=== PATIENT | female | born 1965 | race Caucasian/White ===

== ENCOUNTER 2022-06-18 11:15 | Outpatient (CLI) | payer SELFPAY | END 2022-06-18 11:16 | disposition home or self-care (01) | LOC: NFLDREF 11:15 | PROVIDERS: Visit Provider Obstetrics & Gynecology | DX: Z01.419 Encounter for gynecological examination (general) (routine) without abnormal findings (principal); Z11.51 Encounter for screening for human papillomavirus (HPV); N94.10 Unspecified dyspareunia | CPT/HCPCS: 87624; 88175 ==

== ENCOUNTER 2022-10-05 09:13 | Outpatient (CLI) | payer BC, SELFPAY ==
--- NOTE | 2022-10-05 09:15 | CRLHL7_ITS ---
For Patients: As a result of the Century Cures Act, medical imaging exams and procedure reports are released immediately into your electronic medical record. You may view this report before your referring provider. If you have questions, please contact your health care provider. BILATERAL SCREENING MAMMOGRAM WITH COMPUTER-AIDED DETECTION AND TOMOSYNTHESIS TECHNIQUE: CC and MLO views were obtained. These mammographic images have been obtained using full-field digital technique. These mammographic images were interpreted with the benefit of computer-aided detection. Breast Tomosynthesis was used in this interpretation. COMPARISON FILM: 12/15/18, 08/14/13, 10/22/08. FINDINGS: The breasts are heterogeneously dense, which may obscure small masses IMPRESSION: There is no radiographic evidence for malignancy. ASSESSMENT: BI-RADS Category 2: Benign RECOMMENDATION: Routine screening mammogram in 1 year. A lay language report of this examination will be provided to the patient. Norberto Silverman M.D. Diagnostic Radiologist [email or web address] ANA CRISTINA/Dictated by: Norberto Silverman MD @ 10/05/2022 10:33:00 AM (Electronically Signed)
== END 2022-10-05 09:14 | disposition home or self-care (01) ==
LOC: MAMMO 09:14
PROVIDERS: Visit Provider Obstetrics & Gynecology
DX: Z12.31 Encounter for screening mammogram for malignant neoplasm of breast (principal); R92.2 Inconclusive mammogram
CPT/HCPCS: 77063; 77067

== ENCOUNTER 2024-03-31 10:45 | Outpatient (CLI) | payer BC, SELFPAY ==
--- NOTE | 2024-03-31 10:45 | CRLHL7_ITS ---
For Patients: As a result of the Century Cures Act, medical imaging exams and procedure reports are released immediately into your electronic medical record. You may view this report before your referring provider. If you have questions, please contact your health care provider. BILATERAL SCREENING MAMMOGRAM WITH COMPUTER-AIDED DETECTION AND TOMOSYNTHESIS TECHNIQUE: CC and MLO views were obtained. These mammographic images have been obtained using full-field digital technique. These mammographic images were interpreted with the benefit of computer-aided detection. Breast tomosynthesis was used in this interpretation. COMPARISON FILM: 10/05/22, 12/15/18, 11/02/15. FINDINGS: The breasts are heterogeneously dense, which may obscure small masses. IMPRESSION: There is no radiographic evidence for malignancy. ASSESSMENT: BI-RADS Category 2: Benign RECOMMENDATION: Routine screening mammogram in 1 year. A lay language report of this examination will be provided to the patient. NORBERTO BLACK M.D. Diagnostic Radiologist [email or web address] Transcribed: 11:[address]/Dictated by: Norberto Black MD @ 04/07/2024 9:12:00 AM (Electronically Signed)
--- OUTSIDE RECORDS SUMMARY | 2024-03-31 10:47 | XMS_ITS | Clinical Summary ---
Author Organization [facility] Address [address] [place] [address] Care Team Providers Care Screw Supervisor Name Role Phone Unavailable Primary Care Provider Unavailabl e Source Comments Patient records contain information from all sites at [facility]. For routine questions regarding patient records, call [phone] during business hours, M-F 8:00 AM - 5:00 PM Central Time. Record requests for emergency care only can be directed to [phone] at any time.[facility] Allergies Active Allergy Reactions Criticality Noted Date Comments Animal Dander Other (see comments) 11/27/2023 Docosahexaenoic Acid-Epa Anaphylaxis High 09/20/2006 Fish Oil Other (see comments) High 05/17/2005 Fresh water fish Flavoring Agent Other (see comments) 09/20/2006 Other reaction(s): Runny Nose Fruit Flavor Other (see comments) 09/20/2006 Penicillins Anaphylaxis,Rash High 11/04/2002 Sulfa (Sulfonamide Antibiotics) Rash High 09/20/2006 Tree Nut Edema, suggestive of allergic reaction, i.e., lip, tongue, or throat swelling,Rash High 11/27/2023 Medications Medication Sig Dispensed Refills Start Date End Date Status vit D3-vit K2-ca fructoborate 20 mcg-180 mcg- 216 mg tablet Active dqnsbovgrj-whpzltm-wqtg icillin 20 mg-500 mg- 500 mg (40) combo pack Ac tive levothyroxine (SYNTHROID, LEVOTHROID) 25 mcg tablet Take 25 mcg by mouth every morning before breakfast. 09/23/2023 Active Lact no.21-Bifido no.7-inulin (Fortify Probiotic 50 Plus) 30 billion cell-50 mg capsule,delayed release(DR/EC) Active guaiFENesin (Mucinex) 1,200 mg tablet extended release 12hr Act benjy fexofenadine-pseudoephe drine (Sandy-D 12 Hour) 60-120 mg per 12 hr tablet Active aspirin 81 mg capsule Act benjy balb-T1-upnimb-B6-Zn-Cu -sejal 250 mg-400 unit -40 mg-5 mg tablet Active psyllium husk 3.4 gram/5.4 gram powder Take by mouth. Active Active Problems Problem Noted Date Diagnosed Date Stroke 12/19/2023 Social History Tobacco Use Types Packs/Day Years Used Date Smoking Tobacco: Never Smokeless Tobacco: Never Tobacco Cessation:Counseling Given: Not Answered Alcohol Use Standard Drinks/Week Comments Yes 0 (1 standard drink = 0.6 oz pur e alcohol) Socially [facility] Instamourities Answer Date Recorded In the past 12 months has th e [employer], gas, oil, or water Schedulicity threatened to shut off services in your home? No 12/02/2023 Exercise Vital Sign Answer Date Recorde d On average, how many days pe r week do you engage in moderate to strenuous exercise (like a brisk walk)? 2 days 12/02/2023 On average, how many minutes do you engage in exercise at this level? 60 min 12/02/2023 Hunger Vital Sign Answer Date Recorded Within the past 12 months, y ou worried that your food would run out before you got the money to buy more. Never true 12/02/19 24 Within the past 12 months, t he food you bought just didn't last and you didn't have money to get more. Never true 12/02/2023 PRAPARE - Transportation Answer Date Re corded In the past 12 months, has l ack of transportation kept you from medical appointments or from getting medications? No 11/08 In the past 12 months, has l ack of transportation kept you from meetings, work, or from getting things needed for daily living? No 12/02/2023 Nutrition Answer Date Recorded Nutrition: EVOO Fat Source Unknown 12/02 On average, how many serving s of fruits and vegetables do you eat per day (serving size is equal to 1 cup or approximately the size of a tennis ball)? 3-5 12/02/2023 Dental Answer Date Recorded Dental: Regular Dentist Yes 12/02/19 Employment Answer Date Recorded Employment status Employed and actively working without restrictions 12/02/2023 Housing Stability Answer Date Recorded What is your living situation today? I have a [facility] place to live 12/02/2023 Sex and Gender Information Value Date Recorded Sex Assigned at Female 12/02/2023 10:09 AM RETAIL TEAM LEADER Gender Identity Female 12/02/2023 10:09 AM RETAIL TEAM LEADER Sexual Orientation Straight 12/02/2023 10 :09 AM RETAIL TEAM LEADER Last Filed Vital Signs Vital Sign Reading Time Taken Comments Blood Pressure 122/83 12/19/2023 2:28 PM CDT Pulse 53 12/19/2023 2:43 PM CDT Temperature 36.5 ??C (97.7 ??F) 12/19/2023 2:24 PM CD T Respiratory Rate 17 12/19/2023 2:43 PM CDT Oxygen Saturation 99% 12/19/2023 2:43 PM CDT Inhaled Oxygen Concentration - - Weight 67.5 kg (148 lb 13 oz) 12/02/2023 2:43 PM RETAIL TEAM LEADER Height 167 cm (5' 5.75) 12/02/2023 2:43 PM RETAIL TEAM LEADER Body Mass Index 24.2 12/02/2023 2:43 PM RETAIL TEAM LEADER Plan of Treatment Health Maintenance Due Date Last Done Comments CT Colonography 1965 Cologuard 1965 FIT 1965 HIV Screening 1965 Hepatitis C Screening 1965 Mammogram 1965 COVID-19 Vaccine ( season) 2023 08/18/2021, 11/21/2020, 10/31/2020 Depression Screening (Annual PHQ-2) 10/07/2023 Office Visit for Blood Pressure Check / Re-check 03/01/2024 12/02/2023 Lipid (Cholesterol) Screening 11/27/2024 11/27/2023, 10/07/2021, 01/16/2021 Thyroid Stimulating Hormone (TSH) test for thyroid function 01/27/2025 01/28/2024, 11/27/2023, 07/24/2023 Cervical Cancer Screening 08/20/2025 08/20/2022 Fasting Glucose for Diabetes Screening 01/27/2027 01/28/2024, 07/24/2023, 10/06/2021, Additional history exists DTaP,Tdap,and Td Vaccines (3 - Td or Tdap) 04/12/2028 04/12/2018, 04/23/2008 Colonoscopy 12/18/2033 12/19/2023, 12/19/2023 Colorectal Cancer Screening 12/18/2033 Influenza Vaccine Completed 07/03/2023, , 07/07/2022, Additional history exists Zoster Vaccines Completed 11/08/2023, 07/03/2023 Hepatitis B Vaccines Aged Out No long er eligible based on patient's age to complete this topic Pneumococcal vaccine (0-64 years) Aged Out No longer eligible based on patient's age to complete this topic Medical Devices Implanted Type Area Elevator Operator Device Identifier Shelf Expiration Date Model / Serial / Lot Clp Rsp [facility] Endo 235 - [id number] Implanted:Qt y: 1 on 12/19/2023 by Karthikeyan Wright M.D. at [facility] Hardware e.g. pins/screws /rods N/A: Ascending Colon [employer] [id number] 05/13/2026 [id number] / / [id number] Procedures Procedure Name Priority Date/Time Associated Diagnosis Comments EXTI COMPREHENSIVE METABOLIC PANEL, S/P Routine 01/28/2024 8:36 AM CDT EXTI TSH W/REFLEX TO FT4 Routine 01/28/2024 8:36 AM CDT COLONOSCOPY Routine 12/19/2023 1:11 PM CDT Screening Colon Cancer Average Risk EXTI LIPID PANEL REFLEX TO DIRECT LDL Routine 11/27/2023 8:46 AM RETAIL TEAM LEADER from Last 3 Months or Most Recently Relevant to Health Maintenance Results * Colonoscopy (12/19/2023 1:11 PM CDT) 12/19/2023 1:11 PM CDT Impressions [facility] [employer] - 12/19/2023 2:27 PM CDT Post-op Diagnoses: ? - Two 3 to 4 mm polyps in the cecum, removed with a cold snare. Resected ? and retrieved. ? - One 7 mm polyp in the ascending colon, removed with a cold snare. ? Resected and retrieved. Clip was placed. ? - External hemorrhoids. ? - The examined portion of the ileum was normal. Narrative [facility] - 12/19/2023 2:27 PM CDT Gonda 9 GI GI Patient Name: Anai Guzman Date of : 1965 Age: 58 Procedure Date: 12/19/2023 Procedure: ? Colonoscopy Providers: ? Karthikeyan Wright MD Referring Provider: ?Suzette Spear MD Pre-op Diagnoses: ?Screening for malignant neoplasm in the colon Recommendation: ? - PATHOLOGY/MICROBIOLOGY FOLLOW-UP: The ordering provider is responsible ? for reviewing results from specimens obtained during this endoscopic ? procedure and communicating the findings to the patient. If guidance is ? needed for interpreting endoscopic findings or pathology results, please ? consider a gastroenterology e-consult. ? - Follow up recommendations for patients with polyps identified during ? colonoscopy are impacted by several factors including polyp ? characteristics (size, number and histology), adequacy of colonic ? preparation and pertinent family history. For [facility] providers, ? detailed recommendations are available as an AskMayoExpert Care Process ? Model: <[email or web address] ? There may be some circumstances, specifically those patients with a ? personal or family history of significant colorectal neoplasms where ? these guidelines may not apply. Consider consultation in ? Gastroenterology for all other polyp findings or for patients who are ? not at average risk. ? - Return to referring physician. Findings: ? The perianal and digital rectal examinations were normal. ? Retroflexion in the right colon was performed. ? Two sessile polyps were found in the cecum. The polyps were 3 to 4 mm in ? size. These polyps were removed with a cold snare. Resection and ? retrieval were complete. ? A 7 mm polyp was found in the ascending colon. The polyp was sessile. ? The polyp was removed with a cold snare. Resection and retrieval were ? complete. To prevent bleeding after the polypectomy, one hemostatic clip ? was successfully placed. There was no bleeding at the end of the ? procedure. ? External hemorrhoids were found during retroflexion. The hemorrhoids ? were small. ? The terminal ileum appeared normal. Procedural Details: ? The patient was seen, evaluated, history reviewed, airway and heart-lung ? exams were performed by licensed provider and were satisfactory for ? planned level of sedation care. ? The risks, benefits and alternatives for the procedure and sedation were ? discussed and informed consent was obtained. A procedural pause was ? conducted in the presence of assisting personnel to verify the correct ? patient identity and procedure to be performed. Throughout the ? procedure, the patient's blood pressure, pulse, and oxygen saturations ? were monitored continuously. The Colonoscope was introduced under direct ? vision through the anus and advanced to the terminal ileum, with ? identification of the appendiceal orifice and IC valve. The colonoscopy ? was performed without difficulty. The patient tolerated the procedure ? well. The quality of the bowel preparation was evaluated using the BBPS ? ([place] Bowel Preparation Scale) with scores of: Right Colon = 3, ? Transverse Colon = 3 and Left Colon = 3 (entire mucosa seen well with no ? residual staining, small fragments of stool or opaque liquid). The total ? BBPS score equals 9. Estimated Blood Loss: ?Estimated blood loss was minimal. Complications: ? No immediate complications. Sedation: ? Moderate (conscious) sedation was administered by the nurse and ? supervised by the endoscopist. The following parameters were monitored: ? oxygen saturation, heart rate, blood pressure, and response to care. ? Total physician intraservice time was 35 minutes. Attending Participation: I personally performed the entire procedure. Karthikeyan Wright MD 12/19/2023 2:27:09 PM This report has been signed electronically. Number of Addenda: 0 Suzette Spear M.D. GI PROCEDURE ORDERAB LES [facility] NA from Last 3 Months or Most Recently Relevant to Health Maintenance
--- OUTSIDE RECORDS SUMMARY | 2024-03-31 10:47 | XMS_ITS | Encounter Summary ---
Author Organization [facility] Address [address] [place] [address] Care Team Providers Care Escalator Mechanic Name Role Phone Unavailable Primary Care Provider Unavailabl e Reason for Visit * Outpatient (Routine) - Closed Specialty Diagnoses / Procedures Referred By Contact Referred To Contact Gastroenterology and Hepatology Suzette Spear M.D. [address] [place] [phone] [facility] Referral ID Status Reason Start Date Expiration Date Visits Re quested Visits Authorized [id number] Closed 12/02/2023 06/02/2025 1 1 Encounter Details Date Type Department Care Team (Latest Contact Info) Description 12/24/2023 1:20 PM CDT Virtual Visit Division of Gastroenterology in [place], [place] [address] [place] [phone] Jamila Hagen, SAJI, C.N.P., M.S. [address] [place] [phone] Gastroesophageal Reflux Disease Without Esophagitis (Primary Dx); Screening Colon Cancer Average Risk Social History Tobacco Use Types Packs/Day Years Used Date Smoking Tobacco: Never Smokeless Tobacco: Never Alcohol Use Standard Drinks/Week Comments Yes 0 (1 standard drink = 0.6 oz pur e alcohol) Socially [facility] Utilities Answer Date Recorded In the past 12 months has th e electric, gas, oil, or water company threatened to shut off services in your [...] money to buy more. Never true 12/02/19 Within the past 12 months, t he [...] your living situation today? I have a [facility] place to live 12/02/2023 Sex and Gender Information Value Date Recorded Sex Assigned at Female 12/02/2023 10:09 AM CUSTOMER ACCOUNTS ADVISOR Gender Identity Female 12/02/2023 10:09 AM CUSTOMER ACCOUNTS ADVISOR Sexual Orientation Straight 12/02/2023 10 :09 AM CUSTOMER ACCOUNTS ADVISOR documented as of this encounter Progress Notes * Jamila Hagen, SAJI, C.N.P., M.S. - 12/24/2023 1:20 PM CDT Phone visit. Patient of Dr. Spear whom I was asked to follow up by phone to discuss the results. HISTORY OF PRESENT ILLNESS Anai Guzman is a 58-year-old female seen by Dr. Spear on 12/02/2023 for heartburn and reflux symptoms as well as surveillance colon cancer. An upper endoscopy and colonoscopy were performed. ASSESSMENT / PLAN #1 Gastroesophageal reflux #2 A 2-cm hiatal hernia I reviewed this with her. Hiatal hernia does not need surgical repair. Continue with PPI regimen that controls her heartburn symptoms as it currently does in addition to lifestyle modifications. #3 Surveillance colon cancer Polyps removed with pathology showing tubular adenoma with low dysplasia as well as sessile serrated adenoma. Reviewing the Ask [place] Expert guidelines, we recommend she repeat colonoscopy in 3-5 years. No followup needed in the Esophagus Clinic. Billing: I spent 5 minutes with the patient/and family on the phone; reviewing and interpreting test results; discussing and coordinating care. documented in this encounter Plan of Treatment Not on file documented as of this encounter Visit Diagnoses Diagnosis Gastroesophageal Reflux Disease Without Esophagitis- Primary Screening Colon Cancer Average Risk documented in this encounter
--- OUTSIDE RECORDS SUMMARY | 2024-03-31 10:47 | XMS_ITS | Referral Summary ---
Author Organization [facility] Address [address] [place] [id number] Care Team Providers Care Software Configuration Analyst Name Role Phone Unavailable Primary Care Provider Unavailabl e Source Comments Patient records contain information from all sites at [facility]. For routine questions regarding patient records, call [phone] during business hours, M-F 8:00 AM - 5:00 PM Central Time. Record requests for emergency care only can be directed to [phone] at any time.[facility] Allergies Active Allergy Reactions Criticality Noted Date [...] 20 mcg-180 mcg- 216 mg tablet Active ucqtpcviwg-ddopgbb-jraa icillin 20 mg-500 mg- 500 mg (40) [...] Active aspirin 81 mg capsule Act benjy hbyu-H6-bbvfem-B6-Zn-Cu -sejal 250 mg-400 unit -40 mg-5 mg [...] = 0.6 oz pur e alcohol) Socially [facility] CPM Braxisities Answer Date Recorded In the past 12 months has th e [employer], gas, oil, or water [employer] threatened to shut off services in your [...] your living situation today? [facility] 12/02/2023 Sex and Gender Information Value Date Recorded Sex Assigned at Female 12/02/2023 10:09 AM FOOD AND NUTRITION SUPERVISOR Gender Identity Female 12/02/2023 10:09 AM FOOD AND NUTRITION SUPERVISOR Sexual Orientation Straight 12/02/2023 10 :09 AM FOOD AND NUTRITION SUPERVISOR Last Filed Vital Signs Vital Sign Reading Time Taken Comments Blood Pressure 122/83 12/19/2023 2:28 PM CDT Pulse 53 12/19/2023 2:43 PM CDT Temperature 36.5 ??C (97.7 ??F) 12/19/2023 2:24 PM CD T Respiratory Rate 17 12/19/2023 2:43 PM CDT Oxygen Saturation 99% 12/19/2023 2:43 PM CDT Inhaled Oxygen Concentration - - Weight 67.5 kg (148 lb 13 oz) 12/02/2023 2:43 PM FOOD AND NUTRITION SUPERVISOR Height 167 cm (5' 5.75) 12/02/2023 2:43 PM FOOD AND NUTRITION SUPERVISOR Body Mass Index 24.2 12/02/2023 2:43 PM FOOD AND NUTRITION SUPERVISOR Plan of Treatment Not on file Medical Devices Implanted Type Area Pearl Glue Drier Device Identifier Shelf Expiration Date Model / Serial / Lot Clp Rsp [facility] Endo 235 - [id number] Implanted:Qt y: 1 on 12/19/2023 by Karthikeyan Wright M.D. at [facility] Hardware e.g. pins/screws /rods N/A: Ascending Colon [employer] [id number] 05/13/2026 [id number] / / [id number] Procedures Procedure Name Priority Date/Time Associated Diagnosis Comments EXTI COMPREHENSIVE METABOLIC PANEL, S/P Routine 01/28/2024 8:36 AM CDT EXTI TSH W/REFLEX TO FT4 Routine 01/28/2024 8:36 AM CDT COLONOSCOPY Routine 12/19/2023 1:11 PM CDT Screening Colon Cancer Average Risk EXTI LIPID PANEL REFLEX TO DIRECT LDL Routine 11/27/2023 8:46 AM FOOD AND NUTRITION SUPERVISOR from Last 3 Months or Most Recently Relevant to Health Maintenance Results * Colonoscopy (12/19/2023 1:11 PM CDT) 12/19/2023 1:11 PM CDT Impressions [facility] - 12/19/2023 2:27 PM CDT Post-op Diagnoses: [...] portion of the ileum was normal. Narrative [facility] - 12/19/2023 2:27 PM CDT Gonda 9 [...] ? preparation and pertinent family history. For [facility] providers, ? detailed recommendations are available as an AskMayoExpert Care Process ? Model: <[email or web address] ? There may be some circumstances, [...] preparation was evaluated using the BBPS ? ([place] Bowel Preparation Scale) with scores of: Right [...] Suzette Spear M.D. GI PROCEDURE ORDERAB LES [facility] NA from Last 3 Months or Most Recently Relevant to Health Maintenance
--- OUTSIDE RECORDS SUMMARY | 2024-03-31 10:47 | XMS_ITS ---
Author Organization [facility] Address [address] [place] [address] Care Team Providers Care Data Warehouse Consultant Name Role Phone Unavailable Unavailable Unavailable Surgery Details Not on file Complications Check Surgery Details section. Procedure Estimated Blood Loss Check Surgery Details section. Procedure Findings Check Surgery Details section. Procedure Specimens Taken Check Surgery Details section.
--- OUTSIDE RECORDS SUMMARY | 2024-03-31 10:48 | XMS_ITS | Encounter Summary ---
Author Organization [facility] Address [address] [place] [address] Care Team Providers Care Egg Breaker Name Role Phone Laura Quach PA-C Unavailable [phone] Errol Venegas MD Unavailable Errol Venegas MD Primary Care Provider Anthony Toro MD Unavailable Reason for Visit * Reason Comments Medication Refill Encounter Details Date Type Department Care Team (Late st Contact Info) Description [facility] [address] [place] [address] Lianne Ledezma MD [address] [place] [address] Medication Refill Social History Tobacco Use Types Packs/Day Years Used Date Smoking Tobacco: Never Passive Smoke Exposure: Never Smokeless Tobacco: Never Alcohol Use Standard Drinks/Week Comments No 0 (1 standard drink = 0.6 oz pur e alcohol) Social Connection and Isolation Panel [NHANES] A nswer Date Recorded Frequency of Communication with Friends and Fami ly Not on file 01/28/2024 How often do you get together with friends or re latives? Twice a week 01/28/2024 Attends [employer] Services Not on file 01/27 Active Member of Clubs or Organizations Not on f ile 01/28/2024 Attends Club or Organization Meetings Not on matthew e 01/28/2024 Marital Status Not on file 01/28/2024 PHQ-2 Answer Date Recorded PHQ-2 Score 0 01/28/2024 [facility]ational Stress Questionnaire Answer Date Recorded Do you feel stress - tense, restless, nervous, or anxious, or unable to sleep at night because your mind is troubled all the time - these days? Not at all 01/28/2024 Exercise Vital Sign Answer Date Recorde d On average, how many days pe r week do you engage in moderate to strenuous exercise (like a brisk walk)? 3 days Minutes of Exercise per Session Not on file 01/28/2024 Adolescent Education Answer Date Record ed Getting School Help Needed Not on file 07/14 Food Insecurity Answer Date Recorded Within the past 12 months, d id you worry that your food would run out before you got money to buy more? No 01/28/2024 Within the past 12 months, d id the food you bought just not last and you didn? t have money to get more? No 01/28/2024 Housing Stability Answer Date Recorded Do you have housing? (Alex g is defined as stable permanent housing and does not include staying ouside in a car, in a tent, in an abandoned building, in an overnight assisted, or couch-surfing.) Yes 01/28/2024 Are you worried about losing your housing? No 01/28/2024 Financial Resource Strain Answer Date R ecorded Within the past 12 months, h ave you or your family members you live with been unable to get utilities (heat, electricity) when it was really needed? No 01/28/2024 Transportation Needs Answer Date Record ed Within the past 12 months, h as lack of transportation kept you from medical appointments, getting your medicines, non-medical meetings or appointments, work, or from getting things that you need? No 01/28/2024 Interpersonal Safety Answer Date Record ed Do you feel physically and e motionally safe where you currently live? Yes 01/28/2024 Within the past 12 months, h ave you been hit, slapped, kicked or otherwise physically hurt by someone? No 01/28/2024 Within the past 12 months, h ave you been humiliated or emotionally abused in other ways by your partner or ex-partner? No 01/28/2024 Sex and Gender Information Value Date Recorded Sex Assigned at Female 08/18/2021 8:16 PM FUEL VERIFICATION TECHNICIAN Gender Identity Female 08/18/2021 8:16 PM FUEL VERIFICATION TECHNICIAN Sexual Orientation Straight 08/18/2021 8: 16 PM FUEL VERIFICATION TECHNICIAN documented as of this encounter Plan of Treatment Upcoming Encounters Date Type Department Care Team (Late st Contact Info) Description 04/02/2024 2:10 PM CDT Office Visit [facility] [address] [phone] Errol Venegas MD [address] [place], [place] [address] Anthony Toro MD [address] [place] [phone] 04/30/2024 PRE VISIT [facility] [address] [phone] Anthony Toro MD [address] [place] [phone] Previsit 01/12/2025 8:00 AM CDT Office Visit [facility] [address] [place] [address] Errol Venegas MD [address] [place], [place] [id number] documented as of this encounter Visit Diagnoses Diagnosis Cerebrovascular accident (CVA) due to other mechanism (H) Gastroesophageal reflux disease without esophagitis Esophageal reflux Hiatal hernia Diaphragmatic hernia without mention of obstruction or gangrene documented in this encounter Care Teams Egg Breaker Relationship Specialty Start Date End Date Errol Venegas MD [address] [place] [address] PCP - General Internal Medicine 09/23/23 Laura Quach PA-C [address] [facility] [place] [address] Physician Pulper 01/10/22 Errol Venegas MD [address] [place] [address] Assigned PCP 08/10/23 Anthony Toro MD [address] [place] [address] 4 [place] [phone] Otolaryngology 01/09/24 documented as of this encounter
--- OUTSIDE RECORDS SUMMARY | 2024-03-31 10:48 | XMS_ITS | Encounter Summary ---
Author Organization [facility] Address [address] [place] [address] Care Team Providers Care Biofuels Processing Technician Name Role Phone Laura Quach PA-C Unavailable Errol Venegas MD Unavailable Errol Venegas MD Primary Care Provider Anthony Toro MD Unavailable Reason for Visit * Diagnostic Imaging Dexa (Routine) - Pending Review Specialty Diagnoses / Procedures Referred By Nate contreras Referred To Contact Radiology. Diagnoses Menopause Procedures DX Bone Density Errlo Venegas MD [facility] [place] [address] Referral ID Status Reason Start Date Expiration Date V isits Requested Visits Authorized [id number] Pending Review 01/28/2024 01/27/2025 1 1 Encounter Details Date Type Department Care Team (Late st Contact Info) Description 03/26/2024 8:00 AM CDT Ancillary Procedure [address] [place] [address] Errol Venegas MD [address] [place], [place] [address] [place] [address] Menopause Social History Tobacco Use Types Packs/Day Years [...] re latives? Twice a week 01/28/2024 Attends [employer] Services Not on file 01/27 Active Member of Clubs or Organizations Not on f ile 01/28/2024 Attends Club or Organization Meetings Not on matthew e 01/28/2024 Marital Status Not on file 01/28/2024 PHQ-2 Answer Date Recorded PHQ-2 Score 0 01/28/2024 [facility] - Occupational Stress Questionnaire Answer [...] Date Recorded Do you have housing? (Alex turk is defined as stable permanent housing and does not include staying ouside in a car, in a tent, in an abandoned building, in an overnight correction, or couch-surfing.) Yes 01/28/2024 Are you worried [...] Sex Assigned at Female 08/18/2021 8:16 PM BULLDOZER PRESS OPERATOR Gender Identity Female 08/18/2021 8:16 PM BULLDOZER PRESS OPERATOR Sexual Orientation Straight 08/18/2021 8: 16 PM BULLDOZER PRESS OPERATOR documented as of this encounter Plan of Treatment Upcoming Encounters Date Type Department Care Team (Late st Contact Info) Description 04/02/2024 2:10 PM CDT Office Visit [facility] [address] [phone] Errol Venegas MD [address] [place], [place] [address] Anthony Toro MD [address] [place] [phone] 04/30/2024 PRE VISIT [facility] [address] [phone] Anthony Toro MD [address] [place] [phone] Previsit 01/12/2025 8:00 AM CDT Office Visit [facility] [address] [place] [phone] Errol Venegas MD [address] [place] [address] documented as of this encounter Procedures Procedure Name Priority Date/Time Associated Diagnosis Comments DX AXIAL HIPS/SPINE Routine 03/26/2024 7 :58 AM CDT Menopause documented in this encounter Results * DX AXIAL HIPS/SPINE (03/26/2024 7:58 AM CDT) Anatomical Region Laterality Modality Dexa Bone Mineral Den sity 03/26/2024 7:58 AM CDT Impressions 03/26/2024 10:15 AM CDT IMPRESSION: Low bone density (OSTEOPENIA). T-score meets the WHO criteria for low bone density (osteopenia) at one or more measured sites. The risk of osteoporotic fracture increases approximately two-fold for each standard deviation decrease in T-score. Narrative 03/26/2024 10:15 AM CDT EXAM: DX AXIAL HIPS/SPINE LOCATION: [facility] DATE: 03/26/2024 INDICATION: Menopause. DEMOGRAPHICS: Age- 58 years. Gender- Female. COMPARISON: No prior studies available on the current scanner. TECHNIQUE: Dual-energy x-ray absorptiometry (DXA) performed with routine technique. FINDINGS: DXA RESULTS -Lumbar Spine: L1-L4: BMD: 0.979 g/cm2. T-score: -1.7. Z-score: -0.5. -RIGHT Hip Total: BMD: 0.980 g/cm2. T-score: -0.2. Z-score: 0.7. -RIGHT Hip Femoral neck: BMD: 0.919 g/cm2. T-score: -0.9. Z-score: 0.4. -LEFT Hip Total: BMD: 0.991 g/cm2. T-score: -0.1. Z-score: 0.8. -LEFT Hip Femoral neck: BMD: 0.936 g/cm2. T-score: -0.7. Z-score: 0.5. WHO T-SCORE CRITERIA -Normal: T-score at or above -1 SD -Osteopenia: T-score between -1 and -2.5 SD -Osteoporosis: T-score at or below -2.5 SD The World Health Organization (WHO) criteria is applicable to perimenopausal females, postmenopausal females, and men aged 50 years or older. FRACTURE RISK -FRAX Results: The 10 year probability of major osteoporotic fracture is 7.1%, and of hip fracture is 0.4%, based on right femoral neck BMD. RECOMMENDATIONS Consider treatment if major osteoporotic fracture score is greater than or equal to 20%, or if the hip fracture score is greater than or equal to 3%. Procedure Note Ahmet Johnson MD - 03/26/2024 EXAM: DX AXIAL HIPS/SPINE LOCATION: [facility] DATE: 03/26/2024 INDICATION: Menopause. DEMOGRAPHICS: Age- 58 years. Gender- Female. COMPARISON: No prior studies available on the current scanner. TECHNIQUE: Dual-energy x-ray absorptiometry (DXA) performed with routinetechnique. FINDINGS: DXA RESULTS -Lumbar Spine: L1-L4: BMD: 0.979 g/cm2. T-score: -1.7. Z-score: -0.5. -RIGHT Hip Total: BMD: 0.980 g/cm2. T-score: -0.2. Z-score: 0.7. -RIGHT Hip Femoral neck: BMD: 0.919 g/cm2. T-score: -0.9. Z-score: 0.4. -LEFT Hip Total: BMD: 0.991 g/cm2. T-score: -0.1. Z-score: 0.8. -LEFT Hip Femoral neck: BMD: 0.936 g/cm2. T-score: -0.7. Z-score: 0.5. WHO T-SCORE CRITERIA -Normal: T-score at or above -1 SD -Osteopenia: T-score between -1 and -2.5 SD -Osteoporosis: T-score at or below -2.5 SD The World Health Organization (WHO) criteria is applicable toperimenopausal females, postmenopausal females, and men aged 50 years orolder. FRACTURE RISK -FRAX Results: The 10 year probability of major osteoporotic fracture is7.1%, and of hip fracture is 0.4%, based on right femoral neck BMD. RECOMMENDATIONS Consider treatment if major osteoporotic fracture score is greater than orequal to 20%, or if the hip fracture score is greater than or equal to3%. IMPRESSION: Low bone density (OSTEOPENIA). T-score meets the WHO criteriafor low bone density (osteopenia) at one or more measured sites. The riskof osteoporotic fracture increases approximately two-fold for eachstandard deviation decrease in T-score. Errol Venegas MD IMG DEXA ORDERABLES documented in this encounter Visit Diagnoses Diagnosis Menopause Symptomatic menopausal or female climacteric states documented in this encounter Care Teams Biofuels Processing Technician Relationship Specialty Start Date End Date Errol Venegas MD [address] [place] [address] PCP - General Internal Medicine 09/23/23 Laura Quach PA-C [address] [place], [place] [address] Physician Rfid Manager 01/10/22 Errol Venegas MD [address] [place] [address] Assigned PCP 08/10/23 Anthony Toro MD [address], [place] [address] [place] [phone] Otolaryngology 01/09/24 documented as of this encounter
--- OUTSIDE RECORDS SUMMARY | 2024-03-31 10:48 | XMS_ITS | Encounter Summary ---
Author Organization [facility] Address [address] [place] [address] Care Team Providers Care Criminal Researcher Name Role Phone Laura Quach PA-C Unavailable [phone] Errol Venegas MD Unavailable Errol Venegas MD Primary Care Provider [phone] Anthony Toro MD Unavailable Reason for Visit * Reason Comments Medication Refill Encounter Details Date Type Department Care Team (Late st Contact Info) Description 03/15/[address] [place] [address] [place] [address] Errol Venegas MD [address] [place] [address] Medication Refill Social History Tobacco [...] re latives? Twice a week 01/28/2024 Attends Jainism Services Not on file 01/27 Active Member of Clubs or Organizations Not on f ile 01/28/2024 Attends Club or Organization Meetings Not on matthew e 01/28/2024 Marital Status Not on file 01/28/2024 PHQ-2 Answer Date Recorded PHQ-2 Score 0 01/28/2024 [facility] - Occupational Stress [...] Answer Date Recorded Do you have housing? (Housin g is defined as stable permanent housing and does not include staying ouside in a car, in a tent, in an abandoned building, in an overnight [place] [facility], or couch-surfing.) Yes 01/28/2024 Are you worried [...] Sex Assigned at Female 08/18/2021 8:16 PM MARINE PIPEFITTER HELPER Gender Identity Female 08/18/2021 8:16 PM MARINE PIPEFITTER HELPER Sexual Orientation Straight 08/18/2021 8: 16 PM MARINE PIPEFITTER HELPER documented as of this encounter Plan of Treatment Upcoming Encounters Date Type Department Care Team (Late st Contact Info) Description 04/02/2024 2:10 PM CDT Office Visit [facility] [address] [phone] Errol Venegas MD [address] [place], [place] [address] Anthony Toro MD [address] [place] [phone] 04/30/2024 PRE VISIT [facility] [address] [phone] Anthony Toro MD [address] [place] [phone] Previsit 01/12/2025 8:00 AM CDT Office Visit [facility] [address] [place] [address] Errol Venegas MD [address] [place], [place] [address] documented as of this encounter Visit Diagnoses Diagnosis Acquired hypothyroidism Unspecified hypothyroidism documented in this encounter Care Teams Criminal Researcher Relationship Specialty Start Date End Date Errol Venegas MD [address] [place] [address] PCP - General Internal Medicine 09/23/23 Laura Quach PA-C [address] [place] [address] Physician Electroencephalograph Technologist 01/10/22 Errol Venegas MD [address] [place] [address] Assigned PCP 08/10/23 Anthnoy Toro MD [address], [place] [address] [place] [phone] Otolaryngology 01/09/24 documented as of this encounter
--- OUTSIDE RECORDS SUMMARY | 2024-03-31 10:48 | XMS_ITS | Encounter Summary ---
Author Organization [facility] Address [address] [place] [address] Care Team Providers Care Typo Machine Operator Name Role Phone Laura Quach PA-C Unavailable Errol Venegas MD Unavailable Errol Venegas MD Primary Care Provider Anthony Toro MD Unavailable Encounter Details Date Type Department Care Team (Late st Contact Info) Description 01/28/2024 MyC Medical Advice [facility] [address] [place] [address] Errol Venegas MD [address] [facility] [place] [address] Social History Tobacco Use Types Packs/Day Years [...] re latives? Twice a week 01/28/2024 Attends Je[employer]'S Witness Services Not on file 01/27 Active Member of Clubs or Organizations Not on f ile 01/28/2024 Attends Club or Organization Meetings Not on matthew e 01/28/2024 Marital Status Not on file 01/28/2024 PHQ-2 Answer Date Recorded PHQ-2 Score 0 01/28/2024 [facility] - Occupational Stress Questionnaire Answer Date Recorded [...] in an abandoned building, in an overnight skilled nursing, or couch-surfing.) Yes 01/28/2024 Are you worried [...] Sex Assigned at Female 08/18/2021 8:16 PM ADVANCED QUALITY ENGINEER Gender Identity Female 08/18/2021 8:16 PM ADVANCED QUALITY ENGINEER Sexual Orientation Straight 08/18/2021 8: 16 PM ADVANCED QUALITY ENGINEER documented as of this encounter Miscellaneous Notes * Telephone Encounter - Errol Venegas MD - 01/28/2024 1:39 PM CDT Let's add PAP result to her chart . documented in this encounter Plan of Treatment Upcoming Encounters Date Type Department Care Team (Late st Contact Info) Description 04/02/2024 2:10 PM CDT Office Visit [facility] [address] [phone] Errol Venegas MD [address] [place] [address] Anthony Toro MD [address] [place] [phone] 04/30/2024 PRE VISIT [facility] [address] [phone] Anthony Toro MD [address] [place] [phone] Previsit 01/12/2025 8:00 AM CDT Office Visit [facility] [address] [place] [address] Errol Venegas MD [address] [place] [address] documented as of this encounter Visit Diagnoses Not on filedocumented in this encounter Care Teams Typo Machine Operator Relationship Specialty Start Date End Date Errol Venegas MD [address] [place] [address] PCP - General Internal Medicine 09/23/23 Laura Quach PA-C [address] [place] [address] Physician Rn Wellness 01/10/22 Errol Venegas MD [address] [place], [place] [address] Assigned PCP 08/10/23 Anthony Toro MD [address] [place] [address] 4 [place] [phone] Otolaryngology 01/09/24 documented as of this encounter
--- OUTSIDE RECORDS SUMMARY | 2024-03-31 10:48 | XMS_ITS | Clinical Summary ---
Author Organization [facility] Address [address] [place] [address] Care Team Providers Care Supervisor Soldering Name Role Phone Laura Quach PA-C Unavailable Errol Venegas MD Unavailable [phone] Errol Venegas MD Primary Care Provider Anthony Toro MD Unavailable Allergies Active Allergy Reactions Criticality Noted Date Comments Docosahexaenoic Acid-Epa Anaphylaxis High 09/20/2006 Fish High 05/17/2005 Fresh water fish Flavoring Agent 09/20/2006 Other reaction(s): Runny Nose Penicillins 11/04/2002 Sulfa Antibiotics 11/04/2002 Medications Medication Sig Dispensed Refills Start Date End Date Status fluticasone (FLONASE) 50 MCG/ACT sprayIndications:A cute sinusitis with symptoms > 10 days [place] 1-2 sprays into both nostrils daily 16 g 3 7 Active cholecalciferol (VITAMIN D3) 25 mcg (1000 units) capsule Take 2 capsules by mouth daily Active multivitamin, therapeutic (THERA-VIT) TABS tablet Take 1 tablet by mouth daily Active Probiotic Product (ACIDOPHILUS/BIFID US PROBIOTIC PO) Nature's Way Primadophilus Bifidus Active estradiol (VAGIFEM) 10 MCG TABS vaginal tablet Place 1 tablet (10 mcg) vaginally twice a week 3 Active STATIN NOT PRESCRIBED (INTENTIONAL) Please choose reason not prescribed from choices below. Active Calcium-Magnesium- Zinc 333-133-5 MG TABS per tablet Take 1 tablet by mouth daily Active guaiFENesin (MUCINEX) 600 MG 12 hr tablet Take 1,200 mg by mouth 2 times daily Active fexofenadine-pseud oePHEDrine (TINA-D) 60-120 MG 12 hr tablet Take 1 tablet by mouth 2 times daily Active methylcellulose (CITRUCEL) 500 MG TABS tablet Take 500 mg by mouth daily Active aspirin (ASPIRIN LOW DOSE) 81 MG EC tabletIndications: Cerebrovascular accident (CVA) due to other mechanism (H) TAKE 1 TABLET(81 MG) BY MOUTH DAILY 90 tablet 2 4 Active omeprazole (PRILOSEC) [address] capsuleIndications :Gastroesophageal reflux disease without esophagitis,Hiatal hernia TAKE 1 CAPSULE(20 MG) BY MOUTH DAILY 90 capsule 2 4 Active levothyroxine (SYNTHROID/LEVOTHR OID) 25 MCG tabletIndications: Acquired hypothyroidism TAKE 1 TABLET(25 MCG) BY MOUTH DAILY 90 tablet 4 Active omeprazole (PRILOSEC) [address] capsuleIndications :Gastroesophageal reflux disease without esophagitis,Hiatal hernia Take 1 capsule (20 mg) by mouth daily 90 capsule 3 3 024 Discontinued aspirin (ASA) 81 MG EC tabletIndications: Cerebrovascular accident (CVA) due to other mechanism (H) Take 1 tablet (81 mg) by mouth daily 90 tablet 3 3 024 Discontinued levothyroxine (SYNTHROID/LEVOTHR OID) 25 MCG tabletIndications: Acquired hypothyroidism TAKE 1 TABLET(25 MCG) BY MOUTH DAILY 90 tablet 4 024 Discontinued Active Problems Problem Noted Date Diagnosed Date Pituitary microadenoma 09/23/2023 CVD (cerebrovascular disease) 09/23/2023 Acquired hypothyroidism 09/23/2023 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 Provider to review Resolved Problems Problem Noted Date Diagnosed Date Resolved Date Memory loss 10/06/2021 02/12/2023 Unexplained weight gain 10/07/2019 02/12/2023 05/0 06/2023 Pain in joint, shoulder region 02/04/2008 04/02/2008 Other joint derangement, not elsewhere classified, shoulder region 02/04/2008 04/02/2008 Encounters Date Type Department Care Team Description 03/26/2024 8:00 AM CDT Ancillary Procedure [place] [address] [facility] [address] [place] [address] Errol Venegas MD Menopause 03/26/2024 Travel 03/15/2024 Refill [facility] [address] [place] [phone] Errol Venegas MD Medication Refill 03/03/2024 Refill [facility] [address] [address] [place] [phone] Lianne Ledezma MD Medication Refill 01/28/2024 8:00 AM CDT Office Visit [facility] [address] [facility] [place] [phone] Errol Venegas MD Encounter for preventative adult health care examination (Primary Dx); Menopause; Acquired hypothyroidism; Gastroesophageal reflux disease without esophagitis 01/28/2024 MyC Medical Advice [facility] [address] [facility] [address] [place] [phone] Errol Venegas MD 01/28/2024 Travel 01/01/2024 MyC Medical Advice [facility] [address] [facility] [address] [place] [address] Errol Venegas MD Results 01/01/2024 MyC Medical Advice [facility] [address] [place] [phone] Errol Venegas MD MyChart Communication from Last 3 Months Immunizations Name Administration Dates Next Due COVID-19 MONOVALENT 12+ (Pfizer) 08/18/2021,11/07,10/31/2020 Flu, Unspecified 07/07/2022 Influenza (IIV3) PF 08/14/2010,07/27/2008,2002 Influenza Vaccine 65+ (Fluzone HD) 07/03/2023 Influenza Vaccine >6 months,quad, PF ,08/20/2022,08/27/2021,2019 Influenza Vaccine, 6+MO IM (QUADRIVALENT W/PRESERVATIVES) 06/30/2019 TDAP Vaccine (Adacel) 04/12/2018,04/23/2008 Td (Adult), Adsorbed 09/20/1998 Tetanus 09/20/1998 Zoster recombinant adjuvante d (SHINGRIX) 11/08/2023,07/03/2023 Family History Medical History Relation Comments Cancer Father prostate and bon e cancer Hypertension Father Breast Cancer Maternal Grandmother Hypertension Paternal Grandmother Relation Status Comments Brother Daughter Alive Father (Age 83) prostate cance r Maternal Grandmother Mother Alive Paternal Grandmother Sister Alive Son Social History Tobacco Use Types Packs/Day Years Used Date Smoking Tobacco: Never Passive Smoke Exposure: Never Smokeless Tobacco: Never Tobacco Cessation:Counseling Given: Not Answered Alcohol Use Standard Drinks/Week Comments No 0 [...] Answer Date Recorded PHQ-2 Score 0 01/28/2024 [facility] [place] [facility] - Occupational Stress [...] in an abandoned building, in an overnight nursing home, or couch-surfing.) Yes 01/28/2024 Are you worried [...] Sex Assigned at Female 08/18/2021 8:16 PM STRETCH BOX TENDER Gender Identity Female 08/18/2021 8:16 PM STRETCH BOX TENDER Sexual Orientation Straight 08/18/2021 8: 16 PM STRETCH BOX TENDER Last Filed Vital Signs Vital Sign Reading Time Taken Comments Blood Pressure 126/83 01/28/2024 7:56 AM CDT Pulse 65 01/28/2024 7:56 AM CDT Temperature 36.3 ??C (97.4 ??F) 01/28/2024 7:56 AM CD T Respiratory Rate 16 01/28/2024 7:56 AM CDT Oxygen Saturation 99% 01/28/2024 7:56 AM CDT Inhaled Oxygen Concentration - - Weight 66.5 kg (146 lb 11.2 oz) 01/28/2024 7:56 AM CDT Height 163.2 cm (5' 4.25) 01/28/2024 7:56 AM CD T Body Mass Index 24.99 01/28/2024 7:56 AM CDT Plan of Treatment Upcoming Encounters Date Type Department Care Team (Late st Contact Info) Description 04/02/2024 2:10 PM CDT Office Visit [facility] [address] [phone] Errol Venegas MD [address] [place] [address] Anthony Toro MD [address] [place] [phone] 04/30/2024 PRE VISIT [facility] [address] [phone] Anthony Toro MD [address] [place] [phone] Previsit 01/12/2025 8:00 AM CDT Office Visit [facility] [address] [place] [address] Errol Venegas MD [address] [place] [address] Health Maintenance Due Date Last Done Comments CT COLONOGRAPHY 1963 FLEX SIG 1963 sDNA (Cologuard) 1963 HIV SCREENING 1978 HEPATITIS C SCREENING 1981 FIT 05/11/2006 05/11/2005 RSV VACCINE ( & 60+) (1 - 1-dose 60+ series) 2023 COVID-19 Vaccine (2022- season) 2023 08/18/2021, 11/21/2020, 10/31/2020 MAMMO SCREENING 10/05/2023 10/05/2022, 12/05, 12/15/2018, Additional history exists ANNUAL REVIEW OF HM ORDERS 01/27/2025 01/28/2024, TSH W/FREE T4 REFLEX 01/27/2025 01/28/2024, 01/28/2024, 11/27/2023, Additional history exists YEARLY PREVENTIVE VISIT 01/27/2025 01/28/2024, 10/05 GLUCOSE 01/27/2027 01/28/2024, 07/07, 10/06/2021, Additional history exists DTAP/TDAP/TD IMMUNIZATION (3 - Td or Tdap) 04/12/2028 04/12/2018, 04/23/2008, 09/20/1998, Additional history exists PAP 11/06/2028 11/06/2023, 08/07, 08/20/2022, Additional history exists LIPID 11/27/2028 11/27/2023, 10/2021, 01/16/2021 ADVANCE CARE PLANNING 01/27/2029 01/28/2024 , 02/12/2023 (Declined) COLONOSCOPY 12/18/2033 12/19/2023, 12/05, 09/06/2015 COLORECTAL CANCER SCREENING 12/18/2033 INFLUENZA VACCINE Completed 07/03/2023, , 08/20/2022, Additional history exists HPV TEST Discontinued 11/06/2023, 08/07, 08/20/2022, Additional history exists ZOSTER IMMUNIZATION Completed 11/08/2023, PHQ-2 (once per calendar year) Completed 01/28/2024, 02/12/2023, 01/10/2022, Additional history exists HPV IMMUNIZATION Aged Out No longer e ligible based on patient's age to complete this topic IPV IMMUNIZATION Aged Out No longer e ligible based on patient's age to complete this topic MENINGITIS IMMUNIZATION Aged Out No l onger eligible based on patient's age to complete this topic Pneumococcal Vaccine: Pediatrics (0 to 5 Years) and At-Risk Patients (6 to 64 Years) Aged Out No longer eligible based on patient's age to complete this topic RSV MONOCLONAL ANTIBODY Aged Out No l onger eligible based on patient's age to complete this topic Procedures Procedure Name Priority Date/Time Associated Diagnosis Comments DX AXIAL HIPS/SPINE Routine 03/26/2024 7 :58 AM CDT Menopause T4 FREE Routine 01/28/2024 8:36 AM CDT Encounter for preventative adult health care examination TSH WITH FREE T4 REFLEX Routine 01/28/2024 8:36 AM CDT Encounter for preventative adult health care examination COMPREHENSIVE METABOLIC PANEL Routine 01/28/2024 8:36 AM CDT Encounter for preventative adult health care examination CBC WITH PLATELETS Routine 01/28/2024 8: 36 AM CDT Encounter for preventative adult health care examination LIPID REFLEX TO DIRECT LDL PANEL Routine 11/27/2023 8:46 AM STRETCH BOX TENDER CVD (cerebrovascular disease) PAP SMEAR - HIM PATIENT REPORTED Routine 11/06/2023 MAMMOGRAM - HIM SCAN Routine 10/05/2022 ABSTRACT HPV (HIM EXTERNAL RESULT) Routine 08/20/2022 10:15 AM STRETCH BOX TENDER COLONOSCOPY - HIM SCAN 12/23/2015 12:00 AM CDT OCCULT BLOOD STOOL STAT 05/11/2005 2: 50 PM CDT from Last 3 Months or Most Recently Relevant to Health Maintenance Results * DX AXIAL HIPS/SPINE (03/26/2024 7:58 [...] AM CDT EXAM: DX AXIAL HIPS/SPINE LOCATION: [facility] DATE: 03/26/2024 INDICATION: Menopause. DEMOGRAPHICS: Age- [...] - 03/26/2024 EXAM: DX AXIAL HIPS/SPINE LOCATION: [facility] DATE: 03/26/2024 INDICATION: Menopause. DEMOGRAPHICS: Age- [...] T-score. Errol Venegas MD IMG DEXA ORDERABLES * (ABNORMAL) TSH with free T4 reflex (01/28/2024 8:36 AM CDT) [facility] TSH 9.74(H) 0.30 - 4.20 uIU/mL 01/29/2024 12:50 AM CDT [facility] Blood BLOOD SPECIMEN / Unknown Venipuncture / Unknown 01/28/2024 8:36 AM CDT 01/28/2024 8:36 AM CDT Errol Venegas MD LAB - BLOOD ORDERAB LES Performing Organization Address City/[facility]/ZIP Co de Phone Number LABORATORY [facility] [place] [facility] [address] [facility], [address] * T4 free (01/28/2024 8:36 AM CDT) [facility] Free T4 1.30 0.90 - 1.70 ng/dL 01/29/2024 1:14 AM CDT [facility] Blood BLOOD SPECIMEN / Unknown Venipuncture / Unknown 01/28/2024 8:36 AM CDT 01/28/2024 8:36 AM CDT Errol Venegas MD LAB - BLOOD ORDERAB LES LABORATORY [facility] [address] [facility], [address] * Comprehensive metabolic panel (BMP + Alb, Alk Phos, ALT, AST, Total. Bili, TP) (01/28/2024 8:36 AM CDT) Sodium 136 135 - 145 mmol/L 01/29/2024 12:23 AM CDT [facility] Comment:Reference intervals for this test were updated on 07/02/2023 to more accurately reflect our healthy population. There may be differences in the flagging of prior results with similar values performed with this method. Interpretation of those prior results can be made in the context of the updated reference intervals. Potassium 5.2 3.4 - 5.3 mmol/L 01/29/2024 12:23 AM CDT [facility] Carbon Dioxide (CO2) 27 22 - 29 mmol/L 01/29/2024 12:23 AM CDT [facility] Anion Gap 10 7 - 15 mmol/L 01/29/2024 12:23 AM CDT [facility] Urea Nitrogen 20.6 8.0 - 23.0 mg/dL 01/29/2024 12:23 AM CDT [facility] Creatinine 0.91 0.51 - 0.95 mg/dL 01/29/2024 12:23 AM CDT [facility] GFR Estimate 72 >60 mL/min/1. 73m2 01/29/2024 12:23 AM CDT [facility] Calcium 9.9 8.8 - 10.2 mg/dL 01/29/2024 12:23 AM CDT [facility] Chloride 99 98 - 107 mmol/L 01/29/2024 12:23 AM CDT [facility] Glucose 93 70 - 99 mg/dL 01/29/2024 12:23 AM CDT [facility] Alkaline Phosphatase 72 40 - 150 U/L 01/29/2024 12:23 AM CDT [facility] Comment:Reference intervals for this test were updated on 08/20/2023 to more accurately reflect our healthy population. There may be differences in the flagging of prior results with similar values performed with this method. Interpretation of those prior results can be made in the context of the updated reference intervals. AST 22 0 - 45 U/L 01/29/2024 12:23 AM CDT [facility] Comment:Reference intervals for this test were updated on 03/18/2023 to more accurately reflect our healthy population. There may be differences in the flagging of prior results with similar values performed with this method. Interpretation of those prior results can be made in the context of the updated reference intervals. ALT 19 0 - 50 U/L 01/29/2024 12:23 AM CDT [facility] Comment:Reference intervals for this test were updated on 03/18/2023 to more accurately reflect our healthy population. There may be differences in the flagging of prior results with similar values performed with this method. Interpretation of those prior results can be made in the context of the updated reference intervals. Protein Total 7.7 6.4 - 8.3 g/dL 01/29/2024 12:23 AM CDT [facility] Albumin 4.8 3.5 - 5.2 g/dL 01/29/2024 12:23 AM CDT [facility] Bilirubin Total 0.3 <=1.2 mg/dL 01/29/2024 12:23 AM CDT [facility] Blood BLOOD SPECIMEN / Unknown Venipuncture / Unknown 01/28/2024 8:36 AM CDT 01/28/2024 8:36 AM CDT Errol Venegas MD LAB - BLOOD ORDERAB LES [facility] [place] [facility] [address] [facility], [address] [phone] * CBC with platelets (01/28/2024 8:36 AM CDT) WBC Count 6.1 4.0 - 11.0 10e3/uL 01/28/2024 8:58 AM CDT [facility] RBC Count 4.65 3.80 - 5.20 10e6/uL 01/28/2024 8:58 AM CDT [facility] Hemoglobin 14.1 11.7 - 15.7 g/dL 01/28/2024 8:58 AM CDT [facility] Hematocrit 42.6 35.0 - 47.0 % 01/28/2024 8:58 AM CDT [facility] MCV 92 78 - 100 fL 01/28/2024 8:58 AM CDT [facility] MCH 30.3 26.5 - 33.0 pg 01/28/2024 8:58 AM CDT [facility] MCHC 33.1 31.5 - 36.5 g/dL 01/28/2024 8:58 AM CDT [facility] RDW 12.5 10.0 - 15.0 % 01/28/2024 8:58 AM CDT [facility] Platelet Count 283 150 - 450 10e3/uL 01/28/2024 8:58 AM CDT [facility] Blood STRUCTURE OF RIGHT UPPER LIMB / Unknown Venipuncture / Unknown 01/28/2024 8:36 AM CDT 01/28/2024 8:36 AM CDT Errol Venegas MD LAB - BLOOD ORDERAB LES [facility] [address] [facility] [place] [address], [facility] [phone] * Lipid panel reflex to direct LDL Fasting (11/27/2023 8:46 AM STRETCH BOX TENDER) Cholesterol 173 <200 mg/dL 11/27/2023 7:22 PM STRETCH BOX TENDER [facility] Triglycerides 85 <150 mg/dL 11/27/2023 7:22 PM STRETCH BOX TENDER [facility] Direct Measure HDL 57 >=50 mg/dL 2023 7:22 PM STRETCH BOX TENDER [facility] LDL Cholesterol Calculated 99 <=100 mg/dL 11/27/2023 7:22 PM STRETCH BOX TENDER [facility] Non HDL Cholesterol 116 <130 mg/dL 11/27/2023 7:22 PM STRETCH BOX TENDER [facility] Patient Fasting > 8hrs? Yes 11/27/2023 7:22 PM STRETCH BOX TENDER [facility] Blood BLOOD SPECIMEN / Unknown Venipuncture / Unknown 11/27/2023 8:46 AM STRETCH BOX TENDER 11/27/2023 8:46 AM STRETCH BOX TENDER Narrative [facility] - 11/27/2023 7:22 PM STRETCH BOX TENDER Cholesterol Desirable: ??<200 mg/dL Triglycerides Normal: ??Less than 150 mg/dL Borderline High: ??150-199 mg/dL High: ??200-499 mg/dL Very High: ??Greater than or equal to 500 mg/dL Direct Measure HDL Female: ??Greater than or equal to 50 mg/dL Male: ??Greater than or equal to 40 mg/dL LDL Cholesterol Desirable: ??<100mg/dL Above Desirable: ??100-129 mg/dL Borderline High: ??130-159 mg/dL High: ??160-189 mg/dL Very High: ??>= 190 mg/dL Non HDL Cholesterol Desirable: ??130 mg/dL Above Desirable: ??130-159 mg/dL Borderline High: ??160-189 mg/dL High: ??190-219 mg/dL Very High: ??Greater than or equal to 220 mg/dL Errol Venegas MD LAB - BLOOD ORDERAB LES [facility] [place] [facility] [address] [facility], [address] [place] [address], [facility] [phone] * PAP Smear - HIM Patient Reported (11/06/2023) PAP Smear - HIM Patient Reported Negative EXTERNAL LAB 11/06/2023 Narrative EXTERNAL LAB - 11/06/2023 Sarah Gallego CMA routed conversation to Abstract Quality [id number] hours ago (2:29 PM) PAP results from 11/06/2023 Dr. Gayle Lewis. ?? negative for intraepithelial lesion or malignancy Patient Reported LABORATORY EXTERNAL LAB External Lab * Mammogram - HIM Scan (10/05/2022) Anatomical Region Laterality Modality Other Narrative 10/05/2022 2021: ??[facility] completed[facility] by Dr. Gayle Lewis. Results unknown at this time. Lianne Ledezma MD Provider Outside IMG MAMMOGRAPHY MELLISSA BYRNE * Abstract HPV (HIM External Result) (08/20/2022 10:15 AM STRETCH BOX TENDER) HPV Abstract See Scanned Document [facility] 08/20/2022 10:1 5 AM STRETCH BOX TENDER Narrative [facility] - 08/20/2022 10:15 AM STRETCH BOX TENDER RESULTS FOUND IN CARE EVERYWHERE [facility] Provider Outside LAB - HIM EXTERNAL R ESULT [facility] [address] [place] [address], [facility] * COLONOSCOPY - HIM SCAN (12/23/2015 12:00 AM CDT) 12/23/2015 Provider Outside PROCEDURES * (ABNORMAL) Occult blood stool (05/11/2005 2:50 PM CDT) Occult Blood Positive(A ) NEG MISYS 05/11/2005 2:50 PM CDT 05/11/2005 12:52 PM CDT Olaf Mcdonough MD LAB - STOOLS MELLISSA MOHRLISA MISYS from Last 3 Months or Most Recently Relevant to Health Maintenance Advance Directives For more information, please contact: [phone] * Full Code (Latest Code Status on File) Date Activated Date Inactivated Comments 10/06/2021 5:42 PM 10/07/2021 6:27 PM All basic an d advanced life-sustaining interventions are performed as appropriate Question Answer Comments Code status determined by: Discussion with patie nt/ legal decision maker Care Teams Supervisor Soldering Relationship Specialty Start Date End Date Errol Venegas MD [address] [place] [address] PCP - General Internal Medicine 09/23/23 Laura Quach PA-C [address] [place] [address] Physician Mechanical Equipment Test Engineer 01/10/22 Errol Venegas MD [address] [place] [address] Assigned PCP 08/10/23 Anthony Toro MD [address] [place], [place] [address] [place] [phone] Otolaryngology 01/09/24
--- OUTSIDE RECORDS SUMMARY | 2024-03-31 10:48 | XMS_ITS | Referral Summary ---
Author Organization [facility] Address [address] [place] [address] Care Team Providers Care Farm Field Manager Name Role Phone Laura Quach PA-C Unavailable [phone] Errol Venegas MD Unavailable Errol Venegas MD Primary Care Provider [phone] Anthony Toro MD Unavailable Encounters Date Type Department Care Team Description 03/26/2024 Travel 03/26/2024 8:00 AM CDT Ancillary Procedure [facility] [address] [place] [address] Errol Venegas MD Menopause 03/15/2024 Refill [facility] [address] [place] [address] Errol Venegas MD Medication Refill 03/03/2024 Refill [facility] [address] [place] [address] Lianne Ledezma MD Medication Refill 01/28/2024 MyC Medical Advice [facility] [address] [place] [phone] Errol Venegas MD 01/28/2024 Travel 01/28/2024 8:00 AM CDT Office Visit [facility] [address] [place] [phone] Errol Venegas MD Encounter for preventative adult health care examination (Primary Dx); Menopause; Acquired hypothyroidism; Gastroesophageal reflux disease without esophagitis 01/01/2024 MyC Medical Advice [facility] [address] [place] [phone] Errol Venegas MD Results 01/01/2024 MyC Medical Advice [facility] [address] [place] [phone] Errol Venegas MD MyChart Communication from Last 3 Months Allergies Active Allergy Reactions Criticality Noted Date Comments Docosahexaenoic Acid-Epa Anaphylaxis High 09/20/2006 Fish High 05/17/2005 Fresh water fish Flavoring Agent 09/20/2006 Other reaction(s): Runny Nose Penicillins 11/04/2002 Sulfa Antibiotics 11/04/2002 Medications Medication Sig Dispensed Refills Start Date End Date Status fluticasone (FLONASE) 50 MCG/ACT sprayIndications:A cute sinusitis with symptoms > 10 days [place] 1-2 sprays into both nostrils daily 16 [...] not elsewhere classified, shoulder region 02/04/2008 04/02/2008 Immunizations Name Administration Dates Next Due COVID-19 MONOVALENT 12+ (Pfizer) 08/18/2021,11/07,10/31/2020 Flu, Unspecified 07/07/2022 Influenza (IIV3) PF 08/14/2010,07/27/2008,2002 Influenza Vaccine 65+ (Fluzone HD) 07/03/2023 Influenza Vaccine >6 months,quad, PF ,08/20/2022,08/27/2021,2019 Influenza Vaccine, 6+MO IM (QUADRIVALENT W/PRESERVATIVES) 06/30/2019 TDAP Vaccine (Adacel) 04/12/2018,04/23/2008 Td (Adult), Adsorbed 09/20/1998 Tetanus 09/20/1998 Zoster recombinant adjuvante d (SHINGRIX) 11/08/2023,07/03/2023 Social History Tobacco Use Types Packs/Day Years [...] re latives? Twice a week 01/28/2024 Attends Gnosticist Services Not on file 01/27 Active Member of Clubs or Organizations Not on f ile 01/28/2024 Attends Club or Organization Meetings Not on matthew e 01/28/2024 Marital Status Not on file 01/28/2024 PHQ-2 Answer Date Recorded PHQ-2 Score 0 01/28/2024 [facility] [place] of Occupat ional Health - Occupational Stress [...] in an abandoned building, in an overnight care home, or couch-surfing.) Yes 01/28/2024 Are you [...] Sex Assigned at Female 08/18/2021 8:16 PM RECYCLING CENTER OPERATOR Gender Identity Female 08/18/2021 8:16 PM RECYCLING CENTER OPERATOR Sexual Orientation Straight 08/18/2021 8: 16 PM RECYCLING CENTER OPERATOR Last Filed Vital Signs Vital Sign Reading [...] Description 04/02/2024 2:10 PM CDT Office Visit [facility] [address] [address] Errol Venegas MD [address] [place] [address] Anthony Toro MD [address] [place] [phone] 04/30/2024 PRE VISIT [facility] [address] [phone] Anthony Toro MD [address] [place] [phone] Previsit 01/12/2025 8:00 AM CDT Office Visit [facility] [address] [place] [phone] Errol Venegas MD [address] [place] [address] Procedures Procedure Name Priority Date/Time Associated Diagnosis [...] DIRECT LDL PANEL Routine 11/27/2023 8:46 AM RECYCLING CENTER OPERATOR CVD (cerebrovascular disease) PAP SMEAR - HIM PATIENT REPORTED Routine 11/06/2023 MAMMOGRAM - HIM SCAN Routine 10/05/2022 ABSTRACT HPV (HIM EXTERNAL RESULT) Routine 08/20/2022 10:15 AM RECYCLING CENTER OPERATOR COLONOSCOPY - HIM SCAN 12/23/2015 12:00 AM [...] AM CDT EXAM: DX AXIAL HIPS/SPINE LOCATION: [facility] DATE: 03/26/2024 INDICATION: Menopause. DEMOGRAPHICS: Age- 58 [...] - 03/26/2024 EXAM: DX AXIAL HIPS/SPINE LOCATION: [facility] DATE: 03/26/2024 INDICATION: Menopause. DEMOGRAPHICS: Age- 58 [...] free T4 reflex (01/28/2024 8:36 AM CDT) [facility] Signature TSH 9.74(H) 0.30 - 4.20 uIU/mL 01/29/2024 12:50 AM CDT [facility] Blood BLOOD SPECIMEN / Unknown Venipuncture / Unknown 01/28/2024 8:36 AM CDT 01/28/2024 8:36 AM CDT Errol Venegas MD LAB - BLOOD ORDERAB LES [facility] Core Lab [address] [facility], [address] * T4 free (01/28/2024 8:36 AM CDT) Free T4 1.30 0.90 - 1.70 ng/dL 01/29/2024 1:14 AM CDT [facility] Blood BLOOD SPECIMEN / Unknown Venipuncture / Unknown 01/28/2024 8:36 AM CDT 01/28/2024 8:36 AM CDT Errol Venegas MD LAB - BLOOD ORDERAB LES Performing Organization Address [facility] de Phone Number [facility] Core Lab [address] [facility], [address] * Comprehensive metabolic panel (BMP + Alb, Alk Phos, ALT, AST, Total. Bili, TP) (01/28/2024 8:36 AM CDT) [facility] Sodium 136 135 - 145 mmol/L 01/29/2024 [...] LAB - BLOOD ORDERAB LES [facility] [place] Core Lab [address] [facility], [address] [place] [address], [facility] * CBC with platelets (01/28/2024 8:36 AM [...] LAB - BLOOD ORDERAB LES RI LABORATORY [facility] Lab [address], [address] [place] [address], [place] [phone] * Lipid panel reflex to direct LDL Fasting (11/27/2023 8:46 AM RECYCLING CENTER OPERATOR) Cholesterol 173 <200 mg/dL 11/27/2023 7:22 PM RECYCLING CENTER OPERATOR [facility] Triglycerides 85 <150 mg/dL 11/27/2023 7:22 PM RECYCLING CENTER OPERATOR [facility] Direct Measure HDL 57 >=50 mg/dL 2023 7:22 PM RECYCLING CENTER OPERATOR [facility] LDL Cholesterol Calculated 99 <=100 mg/dL 11/27/2023 7:22 PM RECYCLING CENTER OPERATOR [facility] Non HDL Cholesterol 116 <130 mg/dL 11/27/2023 7:22 PM RECYCLING CENTER OPERATOR [facility] Patient Fasting > 8hrs? Yes 11/27/2023 7:22 PM RECYCLING CENTER OPERATOR [facility] Blood BLOOD SPECIMEN / Unknown Venipuncture / Unknown 11/27/2023 8:46 AM RECYCLING CENTER OPERATOR 11/27/2023 8:46 AM RECYCLING CENTER OPERATOR Narrative [facility] - 11/27/2023 7:22 PM RECYCLING CENTER OPERATOR Cholesterol Desirable: ??<200 mg/dL Triglycerides Normal: ??Less [...] LAB - BLOOD ORDERAB LES [facility] [place] Core Lab [address] [facility] [address] [facility], [address] [place] [address], [facility] [phone] * PAP Smear - HIM Patient Reported (11/06/2023) PAP Smear - HIM Patient Reported Negative EXTERNAL LAB 11/06/2023 Narrative EXTERNAL LAB - 11/06/2023 Sarah Gallego CMA routed conversation to Abstract Quality [id number] hours ago (2:29 PM) PAP results from 11/06/2023 Dr. Gayle Lewis. ?? negative for intraepithelial lesion or malignancy Patient Reported LABORATORY EXTERNAL LAB External Lab * Mammogram - HIM Scan (10/05/2022) Anatomical Region Laterality Modality Other Narrative 10/05/2022 2021: [facility] by [facility] Gayle Lewis. Results unknown at this time. Lianne Ledezma MD Provider Outside IMG MAMMOGRAPHY ORDE RABLES * Abstract HPV (HIM External Result) (08/20/2022 10:15 AM RECYCLING CENTER OPERATOR) HPV Abstract See Scanned Document [facility] 08/20/2022 10:1 5 AM RECYCLING CENTER OPERATOR Narrative [facility] - 08/20/2022 10:15 AM RECYCLING CENTER OPERATOR RESULTS FOUND IN CARE EVERYWHERE [facility] Provider Outside LAB - HIM EXTERNAL R ESULT [facility] [address] [place] [address], [facility] * COLONOSCOPY - HIM SCAN (12/23/2015 12:00 AM CDT) 12/23/2015 Provider Outside PROCEDURES * (ABNORMAL) Occult blood stool (05/11/2005 2:50 PM CDT) Occult Blood Positive(A ) NEG MISYS 05/11/2005 2:50 PM CDT 05/11/2005 12:52 PM CDT Olaf Mcdonough MD LAB - STOOLS MELLISSA BYRNE MISYS from Last 3 Months or Most Recently Relevant to Health Maintenance Advance Directives For more information, please contact: [phone] * Full Code (Latest Code Status on File) Date Activated Date Inactivated Comments 10/06/2021 5:42 PM 10/07/2021 6:27 PM All basic an d advanced life-sustaining interventions are performed as appropriate Question Answer Comments Code status determined by: Discussion with grace palacios/ legal decision maker Care Teams Farm Field Manager Relationship Specialty Start Date End Date Errol Venegas MD [address] [place] [address] PCP - General Internal Medicine 09/23/23 Laura Quach PA-C [address] [address] Physician Take Down Sorter 01/10/22 Errol Venegas MD [address] [place] [id number] Assigned PCP 08/10/23 Anthony Toro MD [address], [place] [address] [place] [address] Otolaryngology 01/09/24
--- OUTSIDE RECORDS SUMMARY | 2024-03-31 10:48 | XMS_ITS | Encounter Summary ---
Author Organization [facility] Address [address] [place] [address] Care Team Providers Care Farm Butcher Name Role Phone Laura Quach PA-C Unavailable [phone] Errol Venegas MD Unavailable [phone] Errol Venegas MD Primary Care Provider Anthony Toro MD Unavailable Encounter Details Date Type Department Care Team (Latest Contact Info) Description 03/26/2024 Travel Social History Tobacco Use Types Packs/Day Years [...] re latives? Twice a week 01/28/2024 Attends Jew Services Not on file 01/27 Active Member of Clubs or Organizations Not on f ile 01/28/2024 Attends Club or Organization Meetings Not on matthew e 01/28/2024 Marital Status Not on file 01/28/2024 PHQ-2 Answer Date Recorded PHQ-2 Score 0 01/28/2024 [facility] of Occupat ional [facility] - Occupational Stress Questionnaire Answer Date [...] Answer Date Recorded Do you have housing? (Alejandroin g is defined as stable permanent housing and does not include staying ouside in a car, in a tent, in an abandoned building, in an overnight fdc, or couch-surfing.) Yes 01/28/2024 Are you worried [...] Sex Assigned at Female 08/18/2021 8:16 PM TECHNICAL RESEARCH SCIENTIST Gender Identity Female 08/18/2021 8:16 PM TECHNICAL RESEARCH SCIENTIST Sexual Orientation Straight 08/18/2021 8: 16 PM TECHNICAL RESEARCH SCIENTIST documented as of this encounter Plan of Treatment Upcoming Encounters Date Type Department Care Team (Late st Contact Info) Description 04/02/2024 2:10 PM CDT Office Visit [facility] [address] [phone] Errol Venegas MD [address] [place], [place] [address] Anthony Toro MD [address] [place] [phone] 04/30/2024 PRE VISIT [facility] [address] [phone] Anthony Toro MD [address] [place] [phone] Previsit 01/12/2025 8:00 AM CDT Office Visit [facility] [address] [place] [address] Errol Venegas MD [address] [place] [address] documented as of this encounter Visit Diagnoses Not on filedocumented in this encounter Care Teams Farm Butcher Relationship Specialty Start Date End Date Errol Venegas MD [address] [place], [place] [phone] PCP - General Internal Medicine 09/23/23 Laura Quach PA-C [address] [place] [address] Physician Life Skills Trainer 01/10/22 Errol Venegas MD [address] [place] [address] Assigned PCP 08/10/23 Anthony Toro MD [address] [place] [address] [address] [place] [phone] Otolaryngology 01/09/24 documented as of this encounter
--- OUTSIDE RECORDS SUMMARY | 2024-03-31 10:49 | XMS_ITS | Encounter Summary ---
Author Organization [facility] Address [address] [place] [address] Care Team Providers Care Forestry Technical Officer Name Role Phone Lianne Ledezma MD Primary Care Provider Lianne Ledezma MD Unavailable Laura Quach PA-C Unavailable Julien Yung MD Unavailable [phone] Trang Osborne APRN, CNP Unavailable [phone] Lianne Ledezma MD Unavailable Errol Venegas MD Unavailable Errol Venegas MD Primary Care Provider Anthony Toro MD Unavailable Encounter Details Date Type Department Care Team (Late st Contact Info) Description 08/18/2021 [facility] Medical Advice [facility] [address] [place] [address] Lianne Ledezma MD [address] [place] [address] Social History Tobacco Use Types Packs/Day Years Used Date Smoking Tobacco: Never Smokeless Tobacco: Never Alcohol Use Standard Drinks/Week Comments No 0 (1 standard drink = 0.6 oz pur e alcohol) PHQ-2 Answer Date Recorded PHQ-2 Score 0 09/26/2018 Sex and Gender Information Value Date Recorded Sex Assigned at Female 08/18/2021 8:16 PM OBJECTS CONSERVATOR Gender Identity Female 08/18/2021 8:16 PM OBJECTS CONSERVATOR Sexual Orientation Straight 08/18/2021 8: 16 PM OBJECTS CONSERVATOR documented as of this encounter Plan of Treatment Upcoming Encounters Date Type Department Care Team (Late st Contact Info) Description 04/02/2024 2:10 PM CDT Office Visit [facility] [address] [phone] Errol Venegas MD [address] [place], [place] [phone] Anthony Toro MD [address] [place] [phone] 04/30/2024 PRE VISIT [facility] [address] [phone] Anthony Toro MD [address] [place] [phone] Previsit 01/12/2025 8:00 AM CDT Office Visit [facility] [address] [place] [phone] Errol Venegas MD [address] [place], [place] [address] documented as of this encounter Visit Diagnoses Not on filedocumented in this encounter Care Teams Forestry Technical Officer Relationship Specialty Start Date End Date Lianne Ledezma MD [address] [place], [place] [address] PCP - General 06/09/03 09/22/23 Errol Venegas MD [address] [place], [place] [address] PCP - General Internal Medicine 09/23/23 Lianne Ledezma MD [address] [place], [place] [address] Assigned PCP 04/20/18 07/20/22 Laura Quach PA-C [address] [place] [address] Physician Press Catcher 01/10/22 Julien Yung MD [address] [place] [address] Assigned Heart and Vascular Provider 01/28/22 08/23/23 Trang Osborne APRN GENERAL OPERATIONS MANAGER [address] [place], [place] [address] Assigned PCP 07/21/22 02/22/23 Lianne Ledezma MD [address] [place], [place] [address] Assigned PCP 02/23/23 08/09/23 Errol Venegas MD [address], [place] [address] Assigned PCP 08/10/23 Anthony Toro MD [address] [place], [place] [address] [place] [address] Otolaryngology 01/09/24 documented as of this encounter
--- OUTSIDE RECORDS SUMMARY | 2024-03-31 10:49 | XMS_ITS | Encounter Summary ---
Author Organization [facility] Address [address] [place] [address] Care Team Providers Care Information Security Systems Instructor Name Role Phone Laura Quach PA-C Unavailable Errol Venegas MD Unavailable Errol Venegas MD Primary Care Provider Anthony Toro MD Unavailable Reason for Referral * Consultation (Routine: Next available opening) - Pending Review Specialty Diagnoses / Procedures Referred By Nate contreras Referred To Contact Otolaryngology Diagnoses Nasal congestion Errol Venegas MD [address] [place] [address] Edith Hughes MD [address] [place] [address] Referral ID Status Reason Start Date Expiration Date V isits Requested Visits Authorized [id number] Pending Review 01/01/2024 12/31/2024 1 1 Question Answer Reason for Referral: Nose/Sinus Scheduling Instructions: [facility] will call you to coordinate your care as prescribed by the provider. If you don? t hear from a patient admitting representative within 2 business days, please call [phone]. Comments Please be aware that coverage of these services is subject to the terms and limitations of your health insurance plan. Call member services at your health plan with any benefit or coverage questions. [facility] will call you to coordinate your care as prescribed by the provider. If you don? t hear from a patient admitting representative within 2 business days, please call [phone]. Reason for Visit * Reason Onset Date Comments MyChart Communication 01/01/2024 Encounter Details Date Type Department Care Team (Late st Contact Info) Description 01/01/2024 [facility] Medical Advice [address] [place] [phone] Errol Venegas MD [address] [place] [address] MyChart Communication Social History Tobacco Use Types Packs/Day Years Used Date Smoking Tobacco: Never Passive Smoke Exposure: Never Smokeless Tobacco: Never Alcohol Use Standard Drinks/Week Comments No 0 (1 standard drink = 0.6 oz pur e alcohol) PHQ-2 Answer Date Recorded PHQ-2 Score 0 02/12/2023 Adolescent Education Answer Date Record ed Getting School Help Needed Not on file 07/14 Food Insecurity Answer Date Recorded Within the past 12 months, d id you worry that your food would run out before you got money to buy more? No 09/23/2023 Within the past 12 months, d id the food you bought just not last and you didn? t have money to get more? No 09/23/2023 Housing Stability Answer Date Recorded Do you have housing? (Alejandroansley turk is defined as stable permanent housing and does not include staying ouside in a car, in a tent, in an abandoned building, in an overnight detention, or couch-surfing.) Yes 09/23/2023 Are you worried about losing your housing? No 09/23/2023 Financial Resource Strain Answer Date R ecorded Within the past 12 months, h ave you or your family members you live with been unable to get utilities (heat, electricity) when it was really needed? No 09/23/2023 Transportation Needs Answer Date Record ed Within the past 12 months, h as lack of transportation kept you from medical appointments, getting your medicines, non-medical meetings or appointments, work, or from getting things that you need? No 09/23/2023 Interpersonal Safety Answer Date Record ed Do you feel physically and e motionally safe where you currently live? Yes 07/24/2023 Within the past 12 months, h ave you been hit, slapped, kicked or otherwise physically hurt by someone? No 07/24/2023 Within the past 12 months, h ave you been humiliated or emotionally abused in other ways by your partner or ex-partner? No 07/24/2023 Sex and Gender Information Value Date Recorded Sex Assigned at Female 08/18/2021 8:16 PM OFFICE ADMINISTRATION INSTRUCTOR Gender Identity Female 08/18/2021 8:16 PM OFFICE ADMINISTRATION INSTRUCTOR Sexual Orientation Straight 08/18/2021 8: 16 PM OFFICE ADMINISTRATION INSTRUCTOR documented as of this encounter Miscellaneous Notes * Telephone Encounter - Marylou Ruano RN - 01/01/2024 4:04 PM CDT Sent message back * Telephone Encounter - Errol Venegas MD - 01/01/2024 3:50 PM CDT Placed referral. * Telephone Encounter - Marylou Walker RN - 01/01/2024 11:20 AM CDT Please see my chart message and advise. Thanks Referral pended documented in this encounter Plan of Treatment Upcoming Encounters Date Type Department Care Team (Late st Contact Info) Description 04/02/2024 2:10 PM CDT Office Visit [facility] [address] [place] [phone] Errol Venegas MD [address] [place] [address] Anthony Toro MD [address] [place] [phone] 04/30/2024 PRE VISIT [facility] [address] [place] [phone] Anthony Toro MD [address] [place] [phone] Previsit 01/12/2025 8:00 AM CDT Office Visit [facility] [address] [place] [address] Errol Venegas MD [address] [place] [address] Scheduled Referrals Name Type Priority Associated Diagnoses Orde r Schedule Adult ENT Poultry Barn Manager Referral Referral Routine: Next available opening Nasal congestion Expected: 01/01/2024 (Approximate), Expires: 12/31/2024 documented as of this encounter Visit Diagnoses Diagnosis Nasal congestion- Primary Other diseases of nasal cavity and sinuses documented in this encounter Care Teams Information Security Systems Instructor Relationship Specialty Start Date End Date Errol Venegas MD [address] [place] [address] PCP - General Internal Medicine 09/23/23 Laura Quach PA-C [address] [address] Physician Consultant Nurse 01/10/22 Errol Venegas MD [address] [place], [place] [address] Assigned PCP 08/10/23 Anthony Toro MD [address], [place] [address] [place] [address] Otolaryngology 01/09/24 documented as of this encounter
--- OUTSIDE RECORDS SUMMARY | 2024-03-31 10:49 | XMS_ITS | Encounter Summary ---
Author Organization [facility] Address [address] [place] [address] Care Team Providers Care Commercial Engineer Name Role Phone Lianne Ledezma MD Primary Care Provider Lianne Ledezma MD Unavailable Lianne Ledezma MD Unavailable Laura Quach PA-C Unavailable [phone] Julien Yung MD Unavailable [phone]- [phone] Trang Osborne APRN, CNP Unavailable + [phone] Lianne Ledezma MD Unavailable Errol Venegas MD Unavailable [phone] Errol Venegas MD Primary Care Provider [phone] Anthony Toro MD Unavailable Reason for Visit * Reason Onset Date Comments Health Maintenance 07/28/2012 screenings do ne at [facility] Encounter Details Date Type Department Care Team (Late st Contact Info) Description 07/28/[address] [place] [address] [place] [address] Lianne Ledezma MD [address] [facility] [address] [place], [place] [address] Health Maintenance (screenings done at [facility]) Social History Tobacco Use Types Packs/Day Years Used Date Smoking Tobacco: Never Smokeless Tobacco: Never Alcohol Use Standard Drinks/Week Comments No 0 (1 standard drink = 0.6 oz pur e alcohol) Sex and Gender Information Value Date Recorded Sex Assigned at Female 08/18/2021 8:16 PM SMOKE AND FLAME SPECIALIST Gender Identity Female 08/18/2021 8:16 PM SMOKE AND FLAME SPECIALIST Sexual Orientation Straight 08/18/2021 8: 16 PM SMOKE AND FLAME SPECIALIST documented as of this encounter Miscellaneous Notes * Telephone Encounter - Gallo Campos - 07/28/2012 4:40 PM CDT Patient stated that she receives her screenings at [facility]. I was unable to obtain any more specificinformation. She said she would ask her doctor to send an DERICK for her [facility] records to be sent to [facility]. documented in this encounter Plan of Treatment Upcoming Encounters Date Type Department Care Team (Late st Contact Info) Description 04/02/2024 2:10 PM CDT Office Visit [facility] [address] [address] Errol Venegas MD [address] [place], [place] [address] Anthony Toro MD [address] [place] [address] 04/30/2024 PRE VISIT [facility] [address] [address] Anthony Toro MD [address] [place] [address] Previsit 01/12/2025 8:00 AM CDT Office Visit [facility] [address] [place] [phone] Errol Venegas MD [address] [place] [address] documented as of this encounter Visit Diagnoses Not on filedocumented in this encounter Care Teams Commercial Engineer Relationship Specialty Start Date End Date Lianne Ledezma MD [address] [place] [address] PCP - General 06/09/03 09/22/23 Lianne Ledezma MD [address] [place] [address] PCP - Assigned PCP 04/20/18 12/09/18 Errol Venegas MD [address] [place] [address] PCP - General Internal Medicine 09/23/23 Lianne Ledezma MD [address] [place] [address] Assigned PCP 04/20/18 07/20/22 Laura Quach PA-C [address] [address] Physician Fruit Grading Supervisor 01/10/22 Julien Yung MD [address] [address] Assigned Heart and Vascular Provider 01/28/22 08/23/23 Trang Osborne APRN LOGISTICS PROJECT MANAGER [address] [place] [address] Assigned PCP 07/21/22 02/22/23 Lianne Ledezma MD [address] [facility] [address] [place] [address] Assigned PCP 02/23/23 08/09/23 Errol Venegas MD [address] [place], [place] [address] Assigned PCP 08/10/23 Anthony Toro MD [address] [place] [address] [address] [place] [phone] Otolaryngology 01/09/24 documented as of this encounter
--- OUTSIDE RECORDS SUMMARY | 2024-03-31 10:49 | XMS_ITS | Encounter Summary ---
Author Organization [facility] Address [address] [place] [address] Care Team Providers Care Washer Hand Name Role Phone Laura Quach PA-C Unavailable Errol Venegas MD Unavailable Errlo Venegas MD Primary Care Provider Anthony Toro MD Unavailable Reason for Referral * Diagnostic Imaging Dexa (Routine) - Pending Review Specialty Diagnoses / Procedures Referred By Nate contreras Referred To Contact Radiology. Diagnoses Menopause Procedures DX Bone Density Errol Venegas MD [address] [place] [address] Referral ID Status Reason Start Date Expiration Date V isits Requested Visits Authorized [id number] Pending Review 01/28/2024 01/27/2025 1 1 Reason for Visit * Reason Comments Physical Encounter Details Date Type Department Care Team ([facility] st Contact Info) Description 01/28/2024 8:00 AM CDT Office Visit [facility] [address] [place] [address] [place] [address] Errol Venegas MD [address] [place] [address] Encounter for preventative adult health care examination (Primary Dx); Menopause; Acquired hypothyroidism; Gastroesophageal reflux disease without esophagitis Social History Tobacco Use Types Packs/Day Years [...] re latives? Twice a week 01/28/2024 Attends Taoism Services Not on file 01/27 Active Member of Clubs or Organizations Not on f ile 01/28/2024 Attends Club or Organization Meetings Not on matthew e 01/28/2024 Marital Status Not on file 01/28/2024 PHQ-2 Answer Date Recorded PHQ-2 Score 0 01/28/2024 [facility] [place] [facility] Occupat ional Health - Occupational Stress [...] in an abandoned building, in an overnight half-way, or couch-surfing.) Yes 01/28/2024 Are you worried [...] Sex Assigned at Female 08/18/2021 8:16 PM GRANITE BLOCK PAVER Gender Identity Female 08/18/2021 8:16 PM GRANITE BLOCK PAVER Sexual Orientation Straight 08/18/2021 8: 16 PM GRANITE BLOCK PAVER documented as of this encounter Last Filed Vital Signs Vital Sign Reading [...] Mass Index 24.99 01/28/2024 7:56 AM CDT documented in this encounter Progress Notes * Errol Venegas MD - 01/28/2024 8:00 AM CDT Images from the original note were not included. Preventive Care Visit [facility] Errol Venegas MD, Internal Medicine Jan 28, 2024 Assessment & Plan Menopause Assess bone density - DX Bone Density; Future Encounter for preventative adult health care examination advised regular aerobic activity, low cholesterol, low salt diet, wearing seat belt, self examinations, sunscreen protection.Obtain screening cholesterol, immunizations reviewed. - CBC with platelets - Comprehensive metabolic panel (BMP + Alb, Alk Phos, ALT, AST, Total. Bili, TP) - TSH with free T4 reflex Acquired hypothyroidism On Synthroid, assess TSH - OFFICE/OUTPT VISIT,EST,LEVL III Gastroesophageal reflux disease without esophagitis Controlled on PPI - OFFICE/OUTPT VISIT,EST,LEVL III Patient has been advised of split billing requirements and indicates understanding: Yes Counseling Appropriate preventive services were discussed with this patient, including applicable screening asappropriate for fall prevention, nutrition, physical activity, Tobacco-use cessation, weight loss and cognition. Checklist reviewing preventive services available has been given to the patient. Reviewed patient's diet, addressing concerns and/or questions. She is at risk for lack of exercise and has been provided with information to increase physical activity for the benefit of her well-being. See Patient Instructions Subjective Rhina is a 58 year old, presenting for the following: Physical 01/28/2024 7:51 AM Additional Questions Roomed by Sarah Carr Accompanied by n/a Health Care Directive Patient does not have a Health Care Directive or Living Will: Discussed advance care planning with patient; however, patient declined at this time. HPI Has history of hypothyroidism. On replacement treatment with Synthroid. No heat /cold intolerance, heart palpitations, weight loss/ gain , change in bowel habits. Has h/o GERD on PPI treatment. symptoms are controlled. No nausea, vomiting, heartburns, bloating. Has had colonoscopy, EGD in [facility], needs repeated colonoscopy in 3 years for h/o polyps Has had a PAP with Jolie 01/28/2024 General Health How would you rate your overall physical health? Good Feel stress (tense, anxious, or unable to sleep) Not at all 01/28/2024 Nutrition Three or more servings of calcium each day? Yes Diet: Carbohydrate counting How many servings of fruit and vegetables per day? (!) 2-3 How many sweetened beverages each day? 0-1 01/28/2024 Exercise Days per week of moderate/strenous exercise 3 days 01/28/2024 Social Factors Frequency of gathering with friends or relatives Twice a week Worry food won't last until get money to buy more No Food not last or not have enough money for food? No Do you have housing? Yes Are you worried about losing your housing? No Lack of transportation? No Unable to get utilities (heat,electricity)? No 01/28/2024 Fall Risk Fallen 2 or more times in the past year? No Trouble with walking or balance? No 01/28/2024 Dental Dentist two times every year? Yes 01/28/2024 TB Screening Were you born outside of the [place]? No Today's PHQ-2 Score: 01/28/2024 7:44 AM PHQ-2 (??1998 Pfizer) Q1: Little interest or pleasure in doing things 0 Q2: Feeling down, depressed or hopeless 0 PHQ-2 Score 0 Q1: Little interest or pleasure in doing things Not at all Q2: Feeling down, depressed or hopeless Not at all PHQ-2 Score 0 01/28/2024 Substance Use Alcohol more than 3/day or more than 7/wk No Do you use any other substances recreationally? No Social History Tobacco Use Smoking status: Never Passive exposure: Never Smokeless tobacco: Never Vaping Use Vaping status: Never Used Substance Use Topics Alcohol use: No Drug use: No 01/28/2024 Breast Cancer Screening Family history of breast, colon, or ovarian cancer? Yes 01/28/2024 LAST FHS-7 RESULTS 1st degree relative breast or ovarian cancer No Any relative bilateral breast cancer No Any male have breast cancer No Any ONE woman have BOTH breast AND ovarian cancer No Any woman with breast cancer before 50yrs Yes 2 or more relatives with breast AND/OR ovarian cancer No 2 or more relatives with breast AND/OR bowel cancer No Mammogram Screening - Mammogram every 1-2 years updated in Health Maintenance based on mutual decision making 01/28/2024 One time HIV Screening Previous HIV test? No 01/28/2024 STI Screening New sexual partner(s) since last STI/HIV test? No History of abnormal Pap smear: NO - age 30- 65 PAP every 3 years recommended 08/20/2022 10:15 AM PAP / HPV PAP-ABSTRACT See Scanned Document This result is from an external source. ASCVD Risk Law Researcher The ASCVD Risk score (Avinash PRADO, et al., 2019) failed to calculate for the following reasons: The patient has a prior KS or stroke diagnosis Reviewed and updated as needed this visit by Provider Lab work is in process Labs reviewed in [facility] Review of Systems CONSTITUTIONAL: NEGATIVE for fever, chills, change in weight INTEGUMENTARY/SKIN: NEGATIVE for worrisome rashes, moles or lesions EYES: NEGATIVE for vision changes or irritation ENT/MOUTH: NEGATIVE for ear, mouth and throat problems RESP: NEGATIVE for significant cough or SOB BREAST: NEGATIVE for masses, tenderness or discharge CV: NEGATIVE for chest pain, palpitations or peripheral edema GI: NEGATIVE for nausea, abdominal pain, heartburn, or change in bowel habits : NEGATIVE for frequency, dysuria, or hematuria MUSCULOSKELETAL: NEGATIVE for significant arthralgias or myalgia NEURO: NEGATIVE for weakness, dizziness or paresthesias ENDOCRINE: NEGATIVE for temperature intolerance, skin/hair changes HEME: NEGATIVE for bleeding problems PSYCHIATRIC: NEGATIVE for changes in mood or affect Objective Exam BP 126/83 (BP Location: Left arm, Cuff Size: Adult Regular) Pulse 65 Temp 97.4 ??F (36.3 ??C) (Tympanic) Resp 16 Ht 1.632 m (5' 4.25) Wt 66.5 kg (146 lb 11.2 oz) LMP (LMP Unknown) [id number]% BMI 24.99 kg/m?? Estimated body mass index is 24.99 kg/m?? as calculated from the following: Height as of this encounter: 1.632 m (5' 4.25). Weight as of this encounter: 66.5 kg (146 lb 11.2 oz). Physical Exam GENERAL: alert and no distress EYES: Eyes grossly normal to inspection, PERRL and conjunctivae and sclerae normal HENT: ear canals and TM's normal, nose and mouth without ulcers or lesions NECK: no adenopathy, no asymmetry, masses, or scars RESP: lungs clear to auscultation - no rales, rhonchi or wheezes CV: regular rate and rhythm, normal S1 S2, no S3 or S4, no murmur, click or rub, no peripheral edema ABDOMEN: soft, nontender, no hepatosplenomegaly, no masses and bowel sounds normal MS: no gross musculoskeletal defects noted, no edema SKIN: no suspicious lesions or rashes NEURO: Normal strength and tone, mentation intact and speech normal PSYCH: mentation appears normal, affect normal/bright Signed Electronically by: Errol Venegas MD documented in this encounter Miscellaneous Notes * Result Encounter Note - Sarah Gallego CMA - 01/28/2024 8:00 AM CDT Letter and lab results sent via epicurio. Sarah Gallego MA documented in this encounter Plan of Treatment Upcoming Encounters Date Type Department Care Team (Late st Contact Info) Description 04/02/2024 2:10 PM CDT Office Visit [facility] [address] [address] Errol Venegas MD [address] [place] [address] Anthony Toro MD [address] [place] [phone] 04/30/2024 PRE VISIT [facility] [address] [address] Anthony Toro MD [address] [place] [address] Previsit 01/12/2025 8:00 AM CDT Office Visit [facility] [address] [place] [phone] Errol Venegas MD [address] [place] [address] documented as of this encounter Procedures Procedure Name Priority Date/Time Associated Diagnosis Comments TSH WITH FREE T4 REFLEX Routine 01/28/2024 8:36 AM CDT Encounter for preventative adult health care examination T4 FREE Routine 01/28/2024 8:36 AM CDT Encounter for preventative adult health care examination COMPREHENSIVE METABOLIC PANEL Routine 01/28/2024 8:36 AM CDT Encounter for preventative adult health care examination CBC WITH PLATELETS Routine 01/28/2024 8: 36 AM CDT Encounter for preventative adult health care examination documented in this encounter Results * DX [...] AM CDT EXAM: DX AXIAL HIPS/SPINE LOCATION: [facility] DATE: 03/26/2024 INDICATION: Menopause. DEMOGRAPHICS: Age- [...] - 03/26/2024 EXAM: DX AXIAL HIPS/SPINE LOCATION: [facility] DATE: 03/26/2024 INDICATION: Menopause. DEMOGRAPHICS: Age- [...] Errol Venegas MD IMG DEXA ORDERABLES * T4 free (01/28/2024 8:36 AM CDT) Free T4 1.30 0.90 - 1.70 ng/dL 01/29/2024 1:14 AM CDT [facility] Blood BLOOD SPECIMEN / Unknown Venipuncture / Unknown 01/28/2024 8:36 AM CDT 01/28/2024 8:36 AM CDT Errol Venegas MD LAB - BLOOD ORDERAB LES [facility] Core Lab [address] [facility], [address] [place] [address] * (ABNORMAL) TSH with free T4 reflex (01/28/2024 8:36 AM CDT) TSH 9.74(H) 0.30 - 4.20 uIU/mL 01/29/2024 12:50 AM CDT [facility] Blood BLOOD SPECIMEN / Unknown Venipuncture / Unknown 01/28/2024 8:36 AM CDT 01/28/2024 8:36 AM CDT Errol Venegas MD LAB - BLOOD ORDERAB LES [facility] [place] Core Lab [address] [facility], [address] [place] [address], [facility] * Comprehensive metabolic panel (BMP + Alb, Alk Phos, ALT, AST, Total. Bili, TP) (01/28/2024 8:36 AM CDT) [facility] Sodium 136 135 - 145 mmol/L 01/29/2024 [...] LAB - BLOOD ORDERAB LES [facility] [place] Core Lab [address] [facility], [address] [place] [address], [facility] * CBC with platelets (01/28/2024 8:36 AM [...] Venegas MD LAB - BLOOD ORDERAB LES [facility] Organization Address City/State/ZIP Co de Phone Number [facility] [address] [place] [address], [facility] [phone] documented in this encounter Visit Diagnoses Diagnosis Encounter for preventative adult health care examination- Primary Menopause Symptomatic menopausal or female climacteric states Acquired hypothyroidism Unspecified hypothyroidism Gastroesophageal reflux disease without esophagitis Esophageal reflux Menopause Symptomatic menopausal or female climacteric states documented in this encounter Care Teams Washer Hand Relationship Specialty Start Date End Date Errol Venegas MD [address] [place] [address] PCP - General Internal Medicine 09/23/23 Laura Quach PA-C [address] [address] Physician Collar Worker 01/10/22 Errol Venegas MD [address] [place] [address] Assigned PCP 08/10/23 Anthony Toro MD [address] [place], [place] 4 [place] [address] Otolaryngology 01/09/24 documented as of this encounter
--- OUTSIDE RECORDS SUMMARY | 2024-03-31 10:49 | XMS_ITS | Encounter Summary ---
Author Organization [facility] Address [address] [place] [address] Care Team Providers Care Network Intern Name Role Phone Lianne Ledezma MD Primary Care Provider Laura Quach PA-C Unavailable Errol Venegas MD Unavailable [phone] Errol Venegas MD Primary Care Provider Anthony Toro MD Unavailable Reason for Visit * Reason Onset Date Comments MyChart Communication 09/11/2023 Encounter Details Date Type Department Care Team (Late st Contact Info) Description 09/11/2023 MyC Medical Advice [address] [place] [address] [place] [address] Errol Venegas MD [address] [place] [address] MyChart Communication Social History Tobacco [...] you got money to buy more? No 07/24/2023 Within the past 12 months, d id the food you bought just not last and you didn? t have money to get more? No 07/24/2023 Housing Stability Answer Date Recorded Do you have housing? (Alex turk is defined as stable permanent housing and does not include staying ouside in a car, in a tent, in an abandoned building, in an overnight alf, or couch-surfing.) Yes 07/24/2023 Are you worried about losing your housing? No 07/24/2023 Financial Resource Strain Answer Date R ecorded Within the past 12 months, h ave you or your family members you live with been unable to get utilities (heat, electricity) when it was really needed? No 07/24/2023 Transportation Needs Answer Date Record ed Within the past 12 months, h as lack of transportation kept you from medical appointments, getting your medicines, non-medical meetings or appointments, work, or from getting things that you need? No 07/24/2023 Interpersonal Safety Answer Date Record ed Do [...] Sex Assigned at Female 08/18/2021 8:16 PM MUSIC BOX MECHANIC Gender Identity Female 08/18/2021 8:16 PM MUSIC BOX MECHANIC Sexual Orientation Straight 08/18/2021 8: 16 PM MUSIC BOX MECHANIC documented as of this encounter Miscellaneous Notes * Telephone Encounter - Marilyn Daly RN - 09/11/2023 4:10 PM CST Called and left patient a voice mail message on September 11, 2023 4:10 PM to call back the clinic. Sent MyChart message to patient. Alfonzo Carlton RN [facility] 4:11 PM 09/11/2023 C BOX MECHANIC * Telephone Encounter - Errol Venegas MD - 09/11/2023 3:43 PM MUSIC BOX MECHANIC Yes, let's see her sooner. OK to use a VV spot for clinic visit. C BOX MECHANIC * Telephone Encounter - Marilyn Daly RN - 09/11/2023 2:59 PM CST Please see patient's mychart message below. Please advise, thanks. Alfonzo Carlton RN [facility] 2:59 PM 09/11/2023 C BOX MECHANIC documented in this encounter Plan of Treatment Upcoming Encounters Date Type Department Care Team (Late st Contact Info) Description 04/02/2024 2:10 PM CDT Office Visit [facility] [address] [address] Errol Venegas MD [address] [place] [address] Anthony Toro MD [address] [place] [phone] 04/30/2024 PRE VISIT [facility] [address] [address] Anthony Toro MD [address] [place] [phone] Previsit 01/12/2025 8:00 AM CDT Office Visit [facility] [address] [place] [phone] Errol Venegas MD [address] [place] [address] documented as of this encounter Visit Diagnoses Not on filedocumented in this encounter Care Teams Network Intern Relationship Specialty Start Date End Date Lianne Ledezma MD [address] [place] [address] PCP - General 06/09/03 09/22/23 Errol Venegas MD [address] [place], [place] [phone] PCP - General Internal Medicine 09/23/23 Laura Quach PA-C [address] [place] [address] Physician Continuous Washer Operator 01/10/22 Errol Venegas MD [address] [place], [place] [address] Assigned PCP 08/10/23 Anthony Toro MD [address], [place] [address] [place] [phone] Otolaryngology 01/09/24 documented as of this encounter
--- OUTSIDE RECORDS SUMMARY | 2024-03-31 10:49 | XMS_ITS | Encounter Summary ---
Author Organization [facility] Address [address] [place] [address] Care Team Providers Care Monkey Breeder Name Role Phone Laura Quach PA-C Unavailable [phone] Errol Venegas MD Unavailable Errol Venegas MD Primary Care Provider [phone] Anthony Toro MD Unavailable Encounter Details Date Type Department Care Team (Latest Contact Info) Description 01/28/2024 Travel Social History Tobacco Use Types Packs/Day [...] re latives? Twice a week 01/28/2024 Attends Yazidism Services Not on file 01/27 Active Member of Clubs or Organizations Not on f ile 01/28/2024 Attends Club or Organization Meetings Not on matthew e 01/28/2024 Marital Status Not on file 01/28/2024 PHQ-2 Answer Date Recorded PHQ-2 Score 0 01/28/2024 [facility] - Occupational Stress Questionnaire Answer Date [...] Sex Assigned at Female 08/18/2021 8:16 PM CLINICAL SAFETY SPECIALIST Gender Identity Female 08/18/2021 8:16 PM CLINICAL SAFETY SPECIALIST Sexual Orientation Straight 08/18/2021 8: 16 PM CLINICAL SAFETY SPECIALIST documented as of this encounter Plan of Treatment Upcoming Encounters Date Type Department Care Team (Late st Contact Info) Description 04/02/2024 2:10 PM CDT Office Visit [facility] [address] [phone] Errol Venegas MD [address] [place], [place] [address] Anthony Toro MD [address] [place] [phone] 04/30/2024 PRE VISIT [facility] [address] [phone] Anthony Toro MD [address] [place] [phone] Previsit 01/12/2025 8:00 AM CDT Office Visit [facility] [address] [place] [address] [place] [address] Errol Venegas MD [address] [place] [address] documented as of this encounter Visit Diagnoses Not on filedocumented in this encounter Care Teams Monkey Breeder Relationship Specialty Start Date End Date Errol Venegas MD [address] [place], [place] [address] PCP - General Internal Medicine 09/23/23 Laura Quach PA-C [address] [place] [address] Physician Avp 01/10/22 Errol Venegas MD [address] [place] [address] Assigned PCP 08/10/23 Anthony Toro MD [address] [place] [address] 4 [place] [phone] Otolaryngology 01/09/24 documented as of this encounter
--- OUTSIDE RECORDS SUMMARY | 2024-03-31 10:49 | XMS_ITS | Encounter Summary ---
Author Organization [facility] Address [address] [place] [id number] Care Team Providers Care [employer]man Name Role Phone Laura Quach PA-C Unavailable [phone] Errol Venegas MD Unavailable [phone] Errol Venegas MD Primary Care Provider Anthony Toro MD Unavailable Reason for Visit * Reason Onset Date Comments Results 01/01/2024 Encounter Details Date Type Department Care Team (Late st Contact Info) Description 01/01/2024 [facility] [place] Medical Advice [address] [place] [address] Errol Venegas MD [address] [place] [address] Results Social History Tobacco Use Types Packs/Day Years [...] in an abandoned building, in an overnight residential, or couch-surfing.) Yes 09/23/2023 Are you worried [...] Sex Assigned at Female 08/18/2021 8:16 PM BACKER UP Gender Identity Female 08/18/2021 8:16 PM BACKER UP Sexual Orientation Straight 08/18/2021 8: 16 PM BACKER UP documented as of this encounter Miscellaneous Notes * Telephone Encounter - Marylou Ruano RN - 01/01/2024 1:32 PM CDT Updated Care everywhere for Colonoscopy and GI endoscopy results as well as surgical pathology. Mammogram results will also update, once completed. documented in this encounter Plan of Treatment Upcoming Encounters Date Type Department Care Team (Late st Contact Info) Description 04/02/2024 2:10 PM CDT Office Visit [facility] [address] [phone] Errol Venegas MD [address] [place], [place] [id number] Anthony Toro MD [address] [place] [phone] 04/30/2024 PRE VISIT [facility] [address] [phone] Anthony Toro MD [address] [place] [phone] Previsit 01/12/2025 8:00 AM CDT Office Visit [facility] [address] [place] [phone] Errol eVnegas MD [address] [place], [place] [id number] documented as of this encounter Visit Diagnoses Not on filedocumented in this encounter Care Teams [employer] Relationship Specialty Start Date End Date Errol Venegas MD [address] [place] [address] PCP - General Internal Medicine 09/23/23 Laura Quach PA-C [phone] [address] Physician Master Sheet Clerk 01/10/22 Errol Venegas MD [address] [place], [place] [id number] Assigned PCP 08/10/23 Anthony Toro MD [address] [place] [address] [place] [address] Otolaryngology 01/09/24 documented as of this encounter
== END 2024-03-31 10:46 | disposition home or self-care (01) ==
LOC: MAMMO 10:45
PROVIDERS: Visit Provider Obstetrics & Gynecology
DX: Z12.31 Encounter for screening mammogram for malignant neoplasm of breast (principal); R92.2 Inconclusive mammogram
CPT/HCPCS: 77063; 77067